=== PATIENT | male | born 1930 | race Caucasian/White ===

== ENCOUNTER 2016-12-20 19:15 | Inpatient (IN) | payer OTHER, MEDICARE ==
--- NOTE | 2016-12-20 19:27 | PDOC ---
History of Present Illness - General History Source: Patient, Parent(s) <Geovanni Narvaez - Last Filed: 12/20/16 19:26> - History of Present Illness Initial Comments: 12/20/16 19:28 The patient is an 86 year old male with history of hypertension, hyperlipidemia , diabetes, skin CA, bladder CA, brought in by EMS for a brief episode of altered mental status today. Per the patient's daughter at bedside, the patient was seated at the dinner table around 5 PM when he appeared to lean to the right , drooling, and not responsive. She subsequently activated EMS, but by the time they arrived on the scene the patient returned to his baseline. The daughter reports she checked the patient's blood sugar at 142. The patient is without complaint of physical evaluation. He denies headache, blurred vision, numbness or tingling. He denies any chest pain or shortness of breath. He denies nausea, vomiting, or diaphoresis. He denies fever or chills. He denies any recent changes or noncompliance with his medication. <Vero Vines - Last Filed: 12/20/16 19:41> - General Chief Complaint: CVA/TIA Stated Complaint: R/O STROKE Time Seen by Provider: 12/20/16 19:21 Past History - Past Medical History Cancer: Yes (skin, bladder) Diabetes: Yes HTN: Yes Hypercholesterolemia: Yes - Psycho/Social/Smoking Cessation Hx Anxiety: No Suicidal Ideation: No Smoking History: Former smoker Have you smoked in the past 12 months: No Number of Cigarettes Smoked Daily: 0 If you are a former smoker, when did you quit?: 50 years ago Information on smoking cessation initiated: No Hx Alcohol Use: No Drug/Substance Use Hx: No <Geovanni Narvaez - Last Filed: 12/20/16 19:26> <Vero Vines - Last Filed: 12/20/16 19:41> - Past Medical History Allergies/Adverse Reactions: Allergies Allergy/AdvReac Type Severity Reaction Status Date / Time No Known Allergies Allergy Verified 12/20/16 19:18 Review of Systems - Review of Systems Able to Perform ROS?: Yes Comments:: 12/20/16 19:31 GENERAL/CONSTITUTIONAL: No fever or chills. No weakness. HEAD, EYES, EARS, NOSE AND THROAT: No change in vision. No ear pain or discharge. No sore throat CARDIOVASCULAR: No chest pain or shortness of breath. RESPIRATORY: No cough, wheezing, or hemoptysis. GASTROINTESTINAL: No nausea, vomiting, diarrhea or constipation. GENITOURINARY: No dysuria, frequency, or change in urination. MUSCULOSKELETAL: No joint or muscle swelling or pain. No neck or back pain. SKIN: No rash NEUROLOGIC: +Right sided weakness (resolved), +AMS (nonresponsiveness, resolved) . No headache, vertigo, loss of consciousness, or change in strength/sensation. ENDOCRINE: No increased thirst. No abnormal weight change. HEMATOLOGIC/LYMPHATIC: No anemia, easy bleeding, or history of blood clots. ALLERGIC/IMMUNOLOGIC: No hives or skin allergy. <Vero Vines - Last Filed: 12/20/16 19:41> *Physical Exam - Vital Signs Last Vital Signs Temp Pulse Resp BP Pulse Ox 98.7 F 103 H 20 166/64 98 12/20/16 19:16 12/20/16 19:16 12/20/16 19:16 12/20/16 19:16 12/20/16 19:16 <Geovanni Narvaez - Last Filed: 12/20/16 19:26> - Vital Signs Last Vital Signs Temp Pulse Resp BP Pulse Ox 98.7 F 103 H 20 166/64 98 12/20/16 19:16 12/20/16 19:16 12/20/16 19:16 12/20/16 19:16 12/20/16 19:16 - Physical Exam Comments: 12/20/16 19:33 GENERAL: Awake, alert, and fully oriented, in no acute distress HEAD: No signs of trauma EYES: PERRLA, EOMI, sclera anicteric, conjunctiva clear ENT: Auricles normal inspection, hearing grossly normal, nares patent, oropharynx clear without exudates. Moist mucosa NECK: Normal ROM, supple, no lymphadenopathy, JVD, or masses LUNGS: Breath sounds equal, clear to auscultation bilaterally. No wheezes, and no crackles HEART: Regular rate and rhythm, normal S1 and S2, no murmurs, rubs or gallops ABDOMEN: Soft, nontender, normoactive bowel sounds. No guarding, no rebound. No masses EXTREMITIES: Normal range of motion, no edema. No clubbing or cyanosis. No cords, erythema, or tenderness NEUROLOGICAL: Cranial nerves II through XII grossly intact. Normal speech, normal gait. Sensation intact throughout. Moving all extremities. No nystagmus, no pronator drift. SKIN: Warm, Dry, normal turgor, no rashes or lesions noted. <Vero Vines - Last Filed: 12/20/16 19:41> Heart Score/ECG Review #1 12/20/16 19:38 EKG obtained 19:21. Sinus rhythm with 1st degree AV block. Vent rate 92 bpm. Nonspecific T wave abnormality. Abnormal ECG. <Vero Vines - Last Filed: 12/20/16 19:41> Discharge Disposition <Geovanni Narvaez - Last Filed: 12/20/16 19:26> <Vero Vines - Last Filed: 12/20/16 19:41> - Referrals Referrals: Glenn Hawk [Primary Care Provider] - Attestations - Attestations 12/20/16 19:36 Documentation prepared by Vero Vines, acting as associate medical director for Geovanni Narvaez DO. <Vero Vines - Last Filed: 12/20/16 19:41> Addendum entered and electronically signed by Geovanni Narvaez MD 12/20/16 20: 38: NIH Stroke Scale - Last Known Well Date/Time & Onset Date Last Known Well: 12/20/16 Time Last Known Well: 18:00 - Initial Evaluation Level of consciousness: Alert Ask patient the month and their age: Answers both correctly Ask patient to open & close eyes; make fist and let go: Obeys both correctly Best gaze (horizontal eye movement): Normal Visual field testing: No visual field loss Facial paresis (Show teeth/raise eyebrows/close eyes tight): Normal symmetrical movement Motor Function: Right Arm: Normal (extends arm 90 (or 45) degrees for 10 seconds without drift Motor Function: Left Leg: Normal (extends leg 30 degrees for 5 seconds without drift) Motor Function: Right Leg: Normal (extends leg 30 degrees for 5 seconds without drift) Limb Ataxia: No ataxia Sensory(Use pinprick test arms,legs,trunk,face/side to side): Normal Best language (Describe picture, name items, read sentences): No Aphasia Dysarthria (read several words): Normal articulation Extinction and Inattention: No abnormality Departure/Admission/Transfer - DischargeDeparture ED Status: Pending Admission Discharge Diagnosis: TIA (transient ischemic attack) Qualifiers: Transient cerebral ischemia type: unspecified Qualified Code(s): G45.9 - Transient cerebral ischemic attack, unspecified Patient Referred to:: Glenn Hawk [Primary Care Provider] - Progress Note (short form) - Note Progress Note: Dr. Narvaez: The scribe's documentation has been prepared under my direction and personally reviewed by me in its entirery. I confirm that the note above accurately reflects all work, treatment, procedures, and medical decision making performed by me. Pt found to have a TIA. No sign of infarct or bleed on CT scan of Brain. Pt will be admitted to [facility]. Addendum entered and electronically signed by Vero Vines SCRIBE 12/20/16 21 :49: ED Treatment Course - LABORATORY CBC & Chemistry Diagram: 12/20/16 19:30 12/20/16 19:30 - ADDITIONAL ORDERS Additional order review: Laboratory Results 12/20/16 12/20/16 12/20/16 19:30 19:30 19:30 INR 1.15 H Sodium 141 Potassium 4.1 Chloride 104 Carbon Dioxide 27 Anion Gap 10 BUN 25 H Creatinine 1.5 H D Creat Clearance w eGFR 44.59 Random Glucose 187 H D Calcium 8.7 Total Bilirubin 0.3 AST 21 ALT 30 D Alkaline Phosphatase 109 Creatine Kinase 148 Troponin I < 0.02 Total Protein 6.6 Albumin 3.6 Triglycerides 156 Cholesterol 128 Total LDL Cholesterol 80 HDL Cholesterol 46 Blood Type O POSITIVE Antibody Screen Negative 12/20/16 19:30 RBC 4.31 MCV 85.8 MCHC 34.2 RDW 14.0 MPV 7.5 Neutrophils % 80.0 Lymphocytes % 10.7 D Monocytes % 6.9 Eosinophils % 1.8 Basophils % 0.6 - RADIOLOGY Radiograph Interpretation: 12/20/16 21:[address], read and interpreted by Dr. Tucker, shows no evidence of acute intracranial pathology.
[2016-12-20] MEDS ORDERED: SODIUM CHLORIDE 1,000 ML IV SCH ×2 (19:30→21:45)
[2016-12-20 19:39] LABS: BASOPHIL 0.6 % (0-2.0); EOSINOPHIL 1.8 % (0-4.5); MCH 29.3 pg (25.7-33.7); MCHC 34.2 g/dl (32.0-35.9); MEAN CELL VOLUME 85.8 fl (80-96); MEAN PLT VOLUME 7.5 fl (7.5-11.1); PLATELET COUNT 195 K/MM3 (134-434); WHITE BLOOD COUNT 9.2 K/mm3 (4.0-10.0)
[2016-12-20 20:03] LABS: ALBUMIN 3.6 g/dl (3.4-5.0); ANION GAP 10 (8-16); BILIRUBIN,TOTAL 0.3 mg/dL (0.2-1.0); CALCIUM 8.7 mg/dL (8.5-10.1); CHOLESTEROL 128 mg/dL (50-200); CO2 27 mmol/L (21-32); CREATININE 1.5 mg/dL (0.7-1.3); GLUCOSE,RANDOM 187 mg/dL (74-106); INR 1.15 (0.82-1.09); LDL CHOLESTEROL (ONLY SJRH) 80 mg/dL (5-100); PROTHROMBIN TIME (PATIENT) 12.7 SEC (9.98-11.88); SGOT/AST 21 U/L (15-37); SGPT/ALT 30 U/L (12-78)
[2016-12-20 20:06] LABS: ALK PHOS 109 U/L (45-117); TOT PROT 6.6 g/dl (6.4-8.2); TROPONIN I < 0.02 ng/ml (0.00-0.05)
--- NOTE | 2016-12-20 21:43 | HP ---
Admitting History and Physical - Primary Care Physician PCP: Margot Bermudez - Admission History of Present Illness: The patient is an 86 year old male with history of hypertension, hyperlipidemia , diabetes, skin CA, bladder CA, brought in by EMS for a brief episode of altered mental status today. Per the patient's daughter at bedside, the patient was seated at the dinner table around 5 PM when he appeared to lean to the right , drooling, and not responsive. She subsequently activated EMS, but by the time they arrived on the scene the patient returned to his baseline. The daughter reports she checked the patient's blood sugar at 142. NO CP, FEVER, CHILLS, N AUSEA OR VOMITTING - Past Medical History Cardiovascular: Yes: HTN, Hyperlipdemia Endocrine: Yes: Diabetes Mellitus - Smoking History Smoking history: Former smoker Have you smoked in the past 12 months: No Aproximately how many cigarettes per day: 0 If you are a former smoker, when did you quit?: 50 years ago - Alcohol/Substance Use Hx Alcohol Use: No Home Medications - Allergies Allergies/Adverse Reactions: Allergies Allergy/AdvReac Type Severity Reaction Status Date / Time No Known Allergies Allergy Verified 12/20/16 19:18 - Home Medications Home Medications: Ambulatory Orders Amlodipine Besylate [Norvasc -] 10 mg PO DAILY 12/20/16 Atenolol [Tenormin -] 50 mg PO DAILY 12/20/16 Lisinopril [Zestril] 2.5 mg PO DAILY 12/20/16 Atorvastatin Ca 20 mg PO DAILY 12/21/16 Cholecalciferol (Vitamin D3) [Vitamin D3] 2,000 unit PO DAILY 12/21/16 Glimepiride 2 mg PO DAILY 12/21/16 Metformin HCl 1,000 mg PO DAILY 12/21/16 Naproxen Sodium [Aleve] 220 mg PO BID PRN MDD 440 mg 12/21/16 Physical Examination Vital Signs: Vital Signs Temperature 98.7 F 12/20/16 19:16 Pulse Rate 103 H 12/20/16 19:16 Respiratory Rate 20 12/20/16 19:16 Blood Pressure 166/64 12/20/16 19:16 O2 Sat by Pulse Oximetry (%) 98 12/20/16 19:16 Constitutional: Yes: No Distress HENT: Yes: Atraumatic Neck: Yes: Supple Cardiovascular: Yes: Regular Rate and Rhythm Respiratory: Yes: CTA Bilaterally Gastrointestinal: Yes: Normal Bowel Sounds Extremities: Yes: WNL Neurological: Yes: Alert, Oriented ...Motor Strength: WNL Problem List - Problems (1) TIA (transient ischemic attack) Code(s): G45.9 - TRANSIENT CEREBRAL ISCHEMIC ATTACK, UNSPECIFIED Qualifiers: Transient cerebral ischemia type: unspecified Qualified Code(s): G45.9 - Transient cerebral ischemic attack, unspecified (2) Hypoglycemia Code(s): E16.2 - HYPOGLYCEMIA, UNSPECIFIED (3) Hyperlipidemia associated with type 2 diabetes mellitus Code(s): E11.69 - TYPE 2 DIABETES MELLITUS WITH OTHER SPECIFIED COMPLICATION E78.5 - HYPERLIPIDEMIA, UNSPECIFIED (4) HTN (hypertension) Code(s): I10 - ESSENTIAL (PRIMARY) HYPERTENSION (5) Diabetes Code(s): E11.9 - TYPE 2 DIABETES MELLITUS WITHOUT COMPLICATIONS Assessment/Plan Laboratory Tests 12/20/16 12/20/16 12/20/16 19:30 19:30 19:30 WBC 9.2 RBC 4.31 Hgb 12.6 D Hct 37.0 MCV 85.8 MCHC 34.2 RDW 14.0 Plt Count 195 MPV 7.5 Neutrophils % 80.0 Lymphocytes % 10.7 D Monocytes % 6.9 Eosinophils % 1.8 Basophils % 0.6 INR 1.15 H Sodium 141 Potassium 4.1 Chloride 104 Carbon Dioxide 27 Anion Gap 10 BUN 25 H Creatinine 1.5 H D Creat Clearance w eGFR 44.59 Random Glucose 187 H D Calcium 8.7 Total Bilirubin 0.3 AST 21 ALT 30 D Alkaline Phosphatase 109 Creatine Kinase 148 Troponin I < 0.02 Total Protein 6.6 Albumin 3.6 Triglycerides 156 Cholesterol 128 Total LDL Cholesterol 80 HDL Cholesterol 46 Blood Type Antibody Screen 12/20/16 19:30 WBC RBC Hgb Hct MCV MCHC RDW Plt Count MPV Neutrophils % Lymphocytes % Monocytes % Eosinophils % Basophils % INR Sodium Potassium Chloride Carbon Dioxide Anion Gap BUN Creatinine Creat Clearance w eGFR Random Glucose Calcium Total Bilirubin AST ALT Alkaline Phosphatase Creatine Kinase Troponin I Total Protein Albumin Triglycerides Cholesterol Total LDL Cholesterol HDL Cholesterol Blood Type O POSITIVE Antibody Screen Negative Active Medications Generic Name Dose Route Start Last Admin Trade Name Freq PRN Reason Stop Dose Admin Sodium Chloride 1,000 mls @ 42 mls/hr 12/20/16 19:30 Normal Saline - IV ASDIR WENCESLAO 1.TIA? ADMIT HEAD CT NEURO CHECKS NEURO CONSULT 2.htn on meds stable 3.dm bgms meds 4.hld on meds cardiology evel might need holter to r/o arrythmia dvt pps
[2016-12-20] MEDS ORDERED: ACETAMINOPHEN 325 MG TABLET (FP) PO PRN (21:44)
[2016-12-21 02:00] LABS: URINE APPEARANCE CLEAR; URINE BILIRUBIN NEGATIVE (NEGATIVE); URINE BLOOD NEGATIVE (NEGATIVE); URINE COLOR LTYELLOW; URINE GLUCOSE (UA) NEGATIVE (NEGATIVE); URINE KETONE NEGATIVE (NEGATIVE); URINE LEUK ESTERASE NEGATIVE (NEGATIVE); URINE NITRITE NEGATIVE (NEGATIVE); URINE PROTEIN NEGATIVE (NEGATIVE); URINE UROBILINOGEN NEGATIVE E.U./dl (0.2-1.0)
[2016-12-21 03:32] VITALS: BMI 29.7
[2016-12-21 07:42] LABS: BASOPHIL 0.5 % (0-2.0); EOSINOPHIL 2.5 % (0-4.5); MCH 29.7 pg (25.7-33.7); MCHC 35.2 g/dl (32.0-35.9); MEAN CELL VOLUME 84.5 fl (80-96); MEAN PLT VOLUME 7.5 fl (7.5-11.1); NEUTROPHILS 70.5 % (42.8-82.8); PLATELET COUNT 164 K/MM3 (134-434); RDW 13.9 % (11.9-15.9); WHITE BLOOD COUNT 8.1 K/mm3 (4.0-10.0)
[2016-12-21 08:03] LABS: ALBUMIN 3.1 g/dl (3.4-5.0); BILIRUBIN,TOTAL 0.5 mg/dL (0.2-1.0); CREATININE 1.2 mg/dL (0.7-1.3); TOT PROT 5.9 g/dl (6.4-8.2)
[2016-12-21] MEDS: amLODIPine BESYLATE 10 MG TABLET (FP) PO SCH (09:14)
[2016-12-21] MEDS: ATENOLOL 50 MG TABLET (FP) PO SCH (09:14)
[2016-12-21] MEDS: ATORVASTATIN CA 20 MG TABLET (FP) PO SCH (21:00)
[2016-12-22] MEDS: ATENOLOL 50 MG TABLET (FP) PO SCH (09:54)
[2016-12-22] MEDS: amLODIPine BESYLATE 10 MG TABLET (FP) PO SCH (09:54)
[2016-12-22] MEDS: BACITRACIN 30 GM TUBE TOPICAL OINTMENT TP SCH (12:09)
--- NOTE | 2016-12-22 12:46 | CON.CARD ---
Consult Consult Specialty:: Cardiology Referred by:: Margot Bermudez MD Reason for Consultation:: R/o TIA - History of Present Illness Chief Complaint: Altered mental status History of Present Illness: The patient is an 86 year old male with history of hypertension, hyperlipidemia , diabetes, skin CA, bladder CA, brought in by EMS for a brief episode of altered mental status since resolved. He was noted by daughter to lean to the right, drooling, and not responsive, FS 142. She subsequently activated EMS, but by the time they arrived on the scene the patient returned to his baseline. He denies chest pain, dyspnea, near or true syncope, palpitations, orthopnea, PND or LE edema. - History Source History Provided By: Patient Limitations to Obtaining History: No Limitations - Past Medical History Cardio/Vascular: Yes: HTN, Hyperlipdemia Endocrine: Yes: Diabetes Mellitus - Alcohol/Substance Use Hx Alcohol Use: No - Smoking History Smoking history: Former smoker Have you smoked in the past 12 months: No Aproximately how many cigarettes per day: 0 If you are a former smoker, when did you quit?: 1969 Home Medications - Allergies Allergies/Adverse Reactions: Allergies Allergy/AdvReac Type Severity Reaction Status Date / Time No Known Allergies Allergy Verified 12/20/16 19:18 - Home Medications Home Medications: Ambulatory Orders Amlodipine Besylate [Norvasc -] 10 mg PO DAILY 12/20/16 Atenolol [Tenormin -] 50 mg PO DAILY 12/20/16 Lisinopril [Zestril] 2.5 mg PO DAILY 12/20/16 Atorvastatin Ca 20 mg PO DAILY 12/21/16 Cholecalciferol (Vitamin D3) [Vitamin D3] 2,000 unit PO DAILY 12/21/16 Glimepiride 2 mg PO DAILY 12/21/16 Metformin HCl 1,000 mg PO DAILY 12/21/16 Naproxen Sodium [Aleve] 220 mg PO BID PRN MDD 440 mg 12/21/16 Review of Systems - Review of Systems Neurological: reports: Confusion Vital Signs: Vital Signs Temperature 98.1 F 12/22/16 09:00 Pulse Rate 65 12/22/16 09:00 Respiratory Rate 19 12/22/16 09:00 Blood Pressure 125/62 12/22/16 09:00 O2 Sat by Pulse Oximetry (%) 98 12/22/16 09:00 Constitutional: Yes: No Distress, Calm Neck: Yes: Supple Respiratory: Yes: Regular, CTA Bilaterally Gastrointestinal: Yes: Normal Bowel Sounds, Soft Cardiovascular: Yes: Regular Rate and Rhythm JVD: No Carotid Bruit: No Heart Sounds: Yes: S1, S2 Edema: No - Other Data Labs, Other Data: CBC, BMP 12/21/16 06:50 12/21/16 06:50 INR, PTT INR 1.15 (0.82-1.09) H 12/20/16 19:30 NSR @ 92 1st deg AVB Imaging - Results Chest X-ray: Report Reviewed (NAD) Cat Scan: Report Reviewed (HCT: No acute changes) Problem List - Problems (1) TIA (transient ischemic attack) Code(s): G45.9 - TRANSIENT CEREBRAL ISCHEMIC ATTACK, UNSPECIFIED Qualifiers: Transient cerebral ischemia type: unspecified Qualified Code(s): G45.9 - Transient cerebral ischemic attack, unspecified (2) Hypertensive cardiomyopathy Code(s): I11.9 - HYPERTENSIVE HEART DISEASE WITHOUT HEART FAILURE I42.9 - CARDIOMYOPATHY, UNSPECIFIED Qualifiers: Heart failure presence: without heart failure Qualified Code(s): I11.9 - Hypertensive heart disease without heart failure (3) Hyperlipidemia associated with type 2 diabetes mellitus Code(s): E11.69 - TYPE 2 DIABETES MELLITUS WITH OTHER SPECIFIED COMPLICATION E78.5 - HYPERLIPIDEMIA, UNSPECIFIED (4) Anemia Code(s): D64.9 - ANEMIA, UNSPECIFIED Assessment/Plan 1. Transient altered mental status r/o TIA 2. HTN/HCVD 3. Hyperlipidemia 4. Type 2 DM 5. Anemia P:1. Echo to assess LV and valve fxn, tele monitor r/o PAF 2. Continue Norvasc 10 qd, Atenolol 50 qd, Lipitor 20 qd, add ASA 81 qd and resume lisinopril 2.5 qd, 3. Carotid u/s, brain MRI 4. Longer term event recorder to r/o PAF as outpatient 5. Thank you for consultative opportunity
--- NOTE | 2016-12-22 13:28 | EKG ---
Test Reason : Blood Pressure : / mmHG Vent. Rate : 092 BPM Atrial Rate : 092 BPM P-R Int : 298 ms QRS Dur : 084 ms QT Int : 340 ms P-R-T Axes : 043 -26 064 degrees QTc Int : 420 ms SINUS RHYTHM WITH 1ST DEGREE A-V BLOCK NONSPECIFIC T WAVE ABNORMALITY ABNORMAL ECG WHEN COMPARED WITH ECG OF 01-DEC-2013 22:06, NONSPECIFIC T WAVE ABNORMALITY NOW EVIDENT IN ANTERIOR LEADS Confirmed by SAMM TROY MD ([id number]) on 12/22/2016 1:28:03 PM Referred By: Confirmed By:SAMM TROY MD
[2016-12-22] MEDS: LISINOPRIL 5 MG TABLET (FP) PO SCH (14:37)
[2016-12-22] MEDS: ASPIRIN 81 MG CHEWABLE TABLETS PO SCH (14:37)
--- NOTE | 2016-12-22 15:48 | PN ---
Progress Note, Physician - Current Medication List Current Medications: Active Medications Acetaminophen (Tylenol -) 650 mg PO Q6H PRN PRN Reason: FEVER OR PAIN Amlodipine Besylate (Norvasc -) 10 mg PO DAILY [facility] Last Admin: 12/22/16 09:54 Dose: 10 mg Aspirin (Asa -) 81 mg PO DAILY [facility] Last Admin: 12/22/16 14:37 Dose: 81 mg Atorvastatin Calcium (Lipitor -) 20 mg PO HS [facility] Last Admin: 12/21/16 21:00 Dose: 20 mg Bacitracin (Bacitracin -) 1 applic TP DAILY [facility] Last Admin: 12/22/16 12:09 Dose: 1 applic Lisinopril (Prinivil) 2.5 mg PO DAILY [facility] Last Admin: 12/22/16 14:37 Dose: 2.5 mg Metformin HCl (Glucophage -) 500 mg PO BID@0700,1630 [facility] - Objective Vital Signs: Vital Signs Temperature 98.5 F 12/22/16 14:35 Pulse Rate 73 12/22/16 14:35 Respiratory Rate 14 12/22/16 14:35 Blood Pressure 134/75 12/22/16 14:35 O2 Sat by Pulse Oximetry (%) 98 12/22/16 09:00 Constitutional: Yes: No Distress HENT: Yes: Normocephalic Cardiovascular: Yes: Regular Rate and Rhythm Respiratory: Yes: CTA Bilaterally Gastrointestinal: Yes: Normal Bowel Sounds Neurological: Yes: Alert, Oriented Labs: CBC, BMP 12/21/16 06:50 12/21/16 06:50 INR, PTT INR 1.15 (0.82-1.09) H 12/20/16 19:30 Problem List - Problems (1) TIA (transient ischemic attack) Code(s): G45.9 - TRANSIENT CEREBRAL ISCHEMIC ATTACK, UNSPECIFIED Qualifiers: Transient cerebral ischemia type: unspecified Qualified Code(s): G45.9 - Transient cerebral ischemic attack, unspecified (2) Hypoglycemia Code(s): E16.2 - HYPOGLYCEMIA, UNSPECIFIED Assessment/Plan 1.TIA? resolved pt stable seen cardio note awaiting neuro to see pt pt eval done 2.htn on meds stable 3.dm on meds bgms 12/21..bad storm couldnt come but on phone with nurses manageing pt
--- NOTE | 2016-12-22 16:58 | CON.NEURO ---
Consult Consult Specialty:: NEUROLOGY Reason for Consultation:: syncope and collapse - History of Present Illness History of Present Illness: 86 year old male with history of hypertension, hyperlipidemia, diabetes, skin CA , bladder CA, was brought in by EMS for a brief episode of altered mental status today. Per the patient's daughter at bedside, the patient was seated at the dinner table around 5 PM when he appeared to lean to the right, drooling, and not responsive. By the time EMS arrived, like 10min. the patient returned to his baseline. The daughter reports she checked the patient's blood sugar at 142. NO CP, FEVER, CHILLS, NAUSEA OR VOMITTING The patient denies diplopia, vertigo, nausea, vomiting. The CT head is negative for acute pathology. - History Source History Provided By: Patient, Medical Record - Past Medical History Cardio/Vascular: Yes: HTN, Hyperlipdemia Endocrine: Yes: Diabetes Mellitus - Alcohol/Substance Use Hx Alcohol Use: No - Smoking History Smoking history: Former smoker Have you smoked in the past 12 months: No Aproximately how many cigarettes per day: 0 If you are a former smoker, when did you quit?: 50 years ago Home Medications - Allergies Allergies/Adverse Reactions: Allergies Allergy/AdvReac Type Severity Reaction Status Date / Time No Known Allergies Allergy Verified 12/20/16 19:18 - Home Medications Home Medications: Ambulatory Orders Amlodipine Besylate [Norvasc -] 10 mg PO DAILY 12/20/16 Atenolol [Tenormin -] 50 mg PO DAILY 12/20/16 Lisinopril [Zestril] 2.5 mg PO DAILY 12/20/16 Atorvastatin Ca 20 mg PO DAILY 12/21/16 Cholecalciferol (Vitamin D3) [Vitamin D3] 2,000 unit PO DAILY 12/21/16 Glimepiride 2 mg PO DAILY 12/21/16 Metformin HCl 1,000 mg PO DAILY 12/21/16 Naproxen Sodium [Aleve] 220 mg PO BID PRN MDD 440 mg 12/21/16 Review of Systems - Review of Systems Constitutional: reports: No Symptoms Eyes: reports: No Symptoms HENT: reports: No Symptoms Neck: reports: No Symptoms Cardiovascular: reports: No Symptoms Respiratory: reports: No Symptoms Gastrointestinal: reports: No Symptoms Genitourinary: reports: No Symptoms Breasts: reports: No Symptoms Reported Musculoskeletal: reports: No Symptoms Integumentary: reports: No Symptoms Neurological: reports: No Symptoms Endocrine: reports: No Symptoms Hematology/Lymphatic: reports: No Symptoms Psychiatric: reports: No Symptoms Physical Exam-Neuro Vital Signs: Vital Signs Temperature 98.5 F 12/22/16 14:35 Pulse Rate 73 12/22/16 14:35 Respiratory Rate 14 12/22/16 14:35 Blood Pressure 134/75 12/22/16 14:35 O2 Sat by Pulse Oximetry (%) 98 12/22/16 09:00 Constitutional: Yes: No Distress, Calm Neck: Yes: Supple, Trachea Midline Cardiovascular: Yes: Regular Rate and Rhythm, S1, S2 Respiratory: Yes: Regular, CTA Bilaterally Gastrointestinal: Yes: Normal Bowel Sounds, Soft Renal/: Yes: WNL Musculoskeletal: Yes: WNL Edema: No Psychiatric: Yes: Alert, Oriented Labs: CBC, BMP 12/21/16 06:50 12/21/16 06:50 INR, PTT INR 1.15 (0.82-1.09) H 12/20/16 19:30 - Neuro Exam Level Of Consciousness: Yes: Oriented to Person, Oriented to Place, Oriented to Time Eyes: Yes: PERRLA Speech: WNL Dominant Hand: Right Cranial Nerves II-XII Intact: Yes Gag: Present DTR's: 1+ Left Bicep, 1+ Right Bicep, 1+ Left Tricep, 1+ Right Tricep, 1+ Left Brachioradialis, 1+ Right Brachioradialis, 1+ Left Achilles, 1+ Right Achilles Babinski: Absent Response to light touch: Normal Response to pain prick: Normal Response to temperature: Normal Response to vibration: Normal Coordination: Normal: Finger to Nose, Heel to [place] Motor Strength: 5/5: Left Arm, Right Arm, Left Leg, Right Leg Gait: Normal NIH Stroke Scale - Total Score NIH Stroke Scale Score: 0 Imaging - Results Cat Scan: Report Reviewed, Image Reviewed Other: Report Reviewed, Image Reviewed Problem List - Problems (1) Syncope and collapse Code(s): R55 - SYNCOPE AND COLLAPSE (2) HTN (hypertension) Code(s): I10 - ESSENTIAL (PRIMARY) HYPERTENSION (3) TIA (transient ischemic attack) Code(s): G45.9 - TRANSIENT CEREBRAL ISCHEMIC ATTACK, UNSPECIFIED Qualifiers: Transient cerebral ischemia type: unspecified Qualified Code(s): G45.9 - Transient cerebral ischemic attack, unspecified (4) Hypoglycemia Code(s): E16.2 - HYPOGLYCEMIA, UNSPECIFIED Assessment/Plan 86 year old male with history of hypertension, hyperlipidemia, diabetes, skin CA , bladder CA, was brought in by EMS for a brief episode of altered mental status today. Per the patient's daughter at bedside, the patient was seated at the dinner table around 5 PM when he appeared to lean to the right, drooling, and not responsive. By the time EMS arrived, like 10min. the patient returned to his baseline. The daughter reports she checked the patient's blood sugar at 142. The patient denies diplopia, vertigo, nausea, vomiting. The CT head is negative for acute pathology. Impression: syncope and collapse.orthostatic hypotension, cardiac syncope versus vago vagal syncope. Plan: - nonfocal neurological exam , NIHS is 0 - continue asa 81mg. po daily, statin, blood pressure control <130mmHg., CHERELLE , metformin- control DM. - syncope work up: echocardiogram, doppler carotids, holter 24h, - possible bradycardia- the patient states that last night his heart rate dropped into the 30s. on the monitor holter and his pin attacher was considering holding the betablockers. - check orthostatic hypotension, lipids, HbA1C -DVT prophylaxis. Thank you for this kind referral.
[2016-12-22] MEDS: ATORVASTATIN CA 20 MG TABLET (FP) PO SCH (21:19)
[2016-12-23] MEDS: ASPIRIN 81 MG CHEWABLE TABLETS PO SCH (09:19)
[2016-12-23] MEDS: LISINOPRIL 5 MG TABLET (FP) PO SCH (09:20)
[2016-12-23] MEDS: amLODIPine BESYLATE 10 MG TABLET (FP) PO SCH (09:20)
[2016-12-23] MEDS: BACITRACIN 30 GM TUBE TOPICAL OINTMENT TP SCH (09:20)
--- NOTE | 2016-12-23 10:44 | PN ---
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 Atenolol d/nicole. Carotid U/s showed sig right ICA stenosis. - Current Medication List Current Medications: Active Medications Acetaminophen (Tylenol -) 650 mg PO Q6H PRN PRN Reason: FEVER OR PAIN Amlodipine Besylate (Norvasc -) 10 mg PO DAILY [facility] Last Admin: 12/23/16 09:20 Dose: 10 mg Aspirin (Asa -) 81 mg PO DAILY [facility] Last Admin: 12/23/16 09:19 Dose: 81 mg Atorvastatin Calcium (Lipitor -) 20 mg PO HS [facility] Last Admin: 12/22/16 21:19 Dose: 20 mg Bacitracin (Bacitracin -) 1 applic TP DAILY [facility] Last Admin: 12/23/16 09:20 Dose: 1 applic Lisinopril (Prinivil) 2.5 mg PO DAILY [facility] Last Admin: 12/23/16 09:20 Dose: 2.5 mg Metformin HCl (Glucophage -) 500 mg PO BID@0700,1630 [facility] - Objective Vital Signs: Vital Signs Temperature 98.3 F 12/23/16 09:24 Pulse Rate 69 12/23/16 09:24 Respiratory Rate 18 12/23/16 09:24 Blood Pressure 127/60 12/23/16 09:24 O2 Sat by Pulse Oximetry (%) 95 12/22/16 21:00 Constitutional: Yes: No Distress, Calm Neck: Yes: Supple Cardiovascular: Yes: Regular Rate and Rhythm Respiratory: Yes: Regular, CTA Bilaterally Gastrointestinal: Yes: Normal Bowel Sounds, Soft Edema: No Labs: CBC, BMP 12/21/16 06:50 12/21/16 06:50 INR, PTT INR 1.15 (0.82-1.09) H 12/20/16 19:30 Problem List - Problems (1) TIA (transient ischemic attack) Code(s): G45.9 - TRANSIENT CEREBRAL ISCHEMIC ATTACK, UNSPECIFIED Qualifiers: Transient cerebral ischemia type: unspecified Qualified Code(s): G45.9 - Transient cerebral ischemic attack, unspecified (2) Hypertensive cardiomyopathy Code(s): I11.9 - HYPERTENSIVE HEART DISEASE WITHOUT HEART FAILURE I42.9 - CARDIOMYOPATHY, UNSPECIFIED Qualifiers: Heart failure presence: without heart failure Qualified Code(s): I11.9 - Hypertensive heart disease without heart failure (3) Hyperlipidemia associated with type 2 diabetes mellitus Code(s): E11.69 - TYPE 2 DIABETES MELLITUS WITH OTHER SPECIFIED COMPLICATION E78.5 - HYPERLIPIDEMIA, UNSPECIFIED (4) Anemia Code(s): D64.9 - ANEMIA, UNSPECIFIED (5) Syncope and collapse Code(s): R55 - SYNCOPE AND COLLAPSE Assessment/Plan 12/22/2016 Echo: Normal LV size and fxn, mild TR, tr-mild MR 12/22/2016 Holter: SR, Type 1 2nd deg AVB Wenckbach overnight 1. Transient altered mental status r/o TIA vs syncope 2. AV block (nocturnal) consider OSAS 3. HTN/HCVD 4. Hyperlipidemia 5. Type 2 DM 6. Anemia 7. Right ICA stenosis P:1. F/u neck CTA to confirm degree of carotid stenosis, brain MRI 2. Continue Norvasc 10 qd, Lipitor 20 qd, ASA 81 qd and lisinopril 2.5 qd. Atenolol d/nicole due to bradycardia 3. Outpatient PSG r/o OSAS
--- NOTE | 2016-12-23 15:22 | HOL ---
Hook-up date: 2016-12-22 15:00:00 Duration: 23:27:00 Test Indications: 2ND DEGREE AVB Medications: 13446 QRS complexes 3 Ventricular ectopics which represent <1 % of total QRS comp. 5 Supraventricular ectopics which represent <1 % of total QRS comp. * Paced QRS complexs which represent % of total QRS comp. * % of Time Classified as Noise VENTRICULAR ECTOPY 3 Isolated 0 Bigeminal Cycles 0 Couplets 0 Runs 0 Beats in Runs * Beats LONGEST at * BPM at :: -- * Beats FASTEST at * BPM at :: -- SUPRAVENTRICULAR ECTOPY 3 Isolated 1 Couplets 0 Runs 0 Beats in Runs * Beats LONGEST at * BPM at :: -- * Beats FASTEST at * BPM at :: -- HEART RATES 34 MIN at 02:53:40 2016-12-23 64 AVG 99 MAX at 08:36:03 2016-12-23 LONGEST RR 2.352 secs at 03:07:42 2016-12-23 SCANNED BY KAYLEN MEADWOS 12/23/2016 NO DIARY SUBMITTED 1. Baseline rhythm is sr with first degree avb. Avg hr 64 and range 34 to 99. 2. Frequent episodes of second degree avb, mobitz type I (wenckebach) in a 2 to 1 pattern creating pauses up to 2.35 seconds. These episodes occur during sleeping hours. 3. Rare pacs and pvcs. 4. No VT, VF, afib, aflutter, svt detected. 5. No diary submitted. Confirmed by OTILIA TURNER MD ([id number]) on 12/23/2016 3:21:44 PM Referred By: Overread By: OTILIA TURNER MD
--- NOTE | 2016-12-23 15:22 | EKG ---
Test Reason : Blood Pressure : / mmHG Vent. Rate : 065 BPM Atrial Rate : 065 BPM P-R Int : 296 ms QRS Dur : 086 ms QT Int : 402 ms P-R-T Axes : 068 -10 039 degrees QTc Int : 418 ms SINUS RHYTHM WITH 1ST DEGREE A-V BLOCK OTHERWISE NORMAL ECG WHEN COMPARED WITH ECG OF 20-DEC-2016 19:21, NONSPECIFIC T WAVE ABNORMALITY NO LONGER EVIDENT IN ANTERIOR LEADS Confirmed by JOHNNY PENN, OTILIA ([id number]) on 12/23/2016 3:22:14 PM Referred By: Confirmed By:OTILIA TURNER MD
--- NOTE | 2016-12-23 15:27 | PN ---
Progress Note, Physician History of Present Illness: 86 year old male with history of hypertension, hyperlipidemia, diabetes, skin CA , bladder CA, was brought in by EMS for a brief episode of altered mental status today. Per the patient's daughter at bedside, the patient was seated at the dinner table around 5 PM when he appeared to lean to the right, drooling, and not responsive. By the time EMS arrived, like 10min. the patient returned to his baseline. The daughter reports she checked the patient's blood sugar at 142. NO CP, FEVER, CHILLS, NAUSEA OR VOMITTING The patient denies diplopia, vertigo, nausea, vomiting. The CT head is negative for acute pathology. - Current Medication List Current Medications: Active Medications Acetaminophen (Tylenol -) 650 mg PO Q6H PRN PRN Reason: FEVER OR PAIN Amlodipine Besylate (Norvasc -) 10 mg PO DAILY [facility] Last Admin: 12/23/16 09:20 Dose: 10 mg Aspirin (Asa -) 81 mg PO DAILY [facility] Last Admin: 12/23/16 09:19 Dose: 81 mg Atorvastatin Calcium (Lipitor -) 20 mg PO HS [facility] Last Admin: 12/22/16 21:19 Dose: 20 mg Bacitracin (Bacitracin -) 1 applic TP DAILY [facility] Last Admin: 12/23/16 09:20 Dose: 1 applic Lisinopril (Prinivil) 2.5 mg PO DAILY [facility] Last Admin: 12/23/16 09:20 Dose: 2.5 mg Metformin HCl (Glucophage -) 500 mg PO BID@0700,1630 [facility] - Objective Vital Signs: Vital Signs Temperature 98.3 F 12/23/16 14:39 Pulse Rate 70 12/23/16 14:39 Respiratory Rate 16 12/23/16 14:39 Blood Pressure 115/55 12/23/16 14:39 O2 Sat by Pulse Oximetry (%) 99 12/23/16 09:00 Constitutional: Yes: No Distress, Calm Eyes: Yes: Conjunctiva Clear, EOM Intact HENT: Yes: Atraumatic, Normocephalic Neck: Yes: Supple, Trachea Midline Cardiovascular: Yes: Regular Rate and Rhythm, S1, S2 Respiratory: Yes: Regular, CTA Bilaterally Gastrointestinal: Yes: Normal Bowel Sounds, Soft Genitourinary: Yes: WNL Breast(s): Yes: WNL Musculoskeletal: Yes: WNL Extremities: Yes: WNL Peripheral Pulses WNL: Yes Peripheral Pulses: Left Radial: 1+, Right Radial: 1+ Neurological: Yes: WNL, Alert, Oriented, Cran Nerves II-XII Intact ...Motor Strength: WNL Psychiatric: Yes: WNL, Alert, Oriented Labs: CBC, BMP 12/21/16 06:50 12/21/16 06:50 INR, PTT INR 1.15 (0.82-1.09) H 12/20/16 19:30 - ....Imaging Ultrasound: Report Reviewed, Image Reviewed MRI: Pending Other: Report Reviewed, Image Reviewed Problem List - Problems (1) Syncope and collapse Code(s): R55 - SYNCOPE AND COLLAPSE (2) HTN (hypertension) Code(s): I10 - ESSENTIAL (PRIMARY) HYPERTENSION (3) TIA (transient ischemic attack) Code(s): G45.9 - TRANSIENT CEREBRAL ISCHEMIC ATTACK, UNSPECIFIED Qualifiers: Transient cerebral ischemia type: unspecified Qualified Code(s): G45.9 - Transient cerebral ischemic attack, unspecified (4) Hypoglycemia Code(s): E16.2 - HYPOGLYCEMIA, UNSPECIFIED Assessment/Plan 86 year old male with history of hypertension, hyperlipidemia, diabetes, skin CA , bladder CA, was brought in by EMS for a brief episode of altered mental status today. Per the patient's daughter at bedside, the patient was seated at the dinner table around 5 PM when he appeared to lean to the right, drooling, and not responsive. By the time EMS arrived, like 10min. the patient returned to his baseline. The daughter reports she checked the patient's blood sugar at 142. The patient denies diplopia, vertigo, nausea, vomiting. The CT head is negative for acute pathology. Impression: syncope and collapse.orthostatic hypotension, cardiac syncope versus vago vagal syncope. TIA doppler carotids : high grade stenosis right common and right internal carotid. transient nocturnal bradycardia with AVB on holter 48h. Plan: - nonfocal neurological exam , NIHS is 0 - continue asa 81mg. po daily, statin, blood pressure control <130mmHg., CHERELLE , metformin- control DM. - syncope work up was done : echocardiogram, doppler carotids, holter 24h, - CTA w/wo contrast head and neck to further evaluate carotid stenosis. - MRI brain to rule out stroke. Consider vascular consult after CTA neck. - to have sleep study to rule out BJ or CSA. -DVT prophylaxis. Thank you for this kind referral.
[2016-12-23] MEDS: metFORMIN HCL 500 MG TABLET (FP) PO SCH (16:37)
[2016-12-23] MEDS ORDERED: HEPARIN NA (PORCINE) 5,000 UNITS/ML 1ML VIAL IVPUSH PRN (17:04)
--- NOTE | 2016-12-23 17:19 | PN ---
Progress Note (short form) - Note Progress Note: Progress Note: Radiology called and there is acute/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 The patient is stable, NIHS is 0. Called the cardiology and the PMD . To start heparin drip per dissection protocol after MRI brain done . To call endovascular consult stat. will follow. Problem List - Problems (1) Syncope and collapse Code(s): R55 - SYNCOPE AND COLLAPSE (2) HTN (hypertension) Code(s): I10 - ESSENTIAL (PRIMARY) HYPERTENSION (3) TIA (transient ischemic attack) Code(s): G45.9 - TRANSIENT CEREBRAL ISCHEMIC ATTACK, UNSPECIFIED Qualifiers: Transient cerebral ischemia type: unspecified Qualified Code(s): G45.9 - Transient cerebral ischemic attack, unspecified (4) Hypoglycemia Code(s): E16.2 - HYPOGLYCEMIA, UNSPECIFIED
--- NOTE | 2016-12-23 17:34 | PN ---
Progress Note, Physician History of Present Illness: STABLE - Current Medication List Current Medications: Active Medications Acetaminophen (Tylenol -) 650 mg PO Q6H PRN PRN Reason: FEVER OR PAIN Amlodipine Besylate (Norvasc -) 10 mg PO DAILY [facility] Last Admin: 12/23/16 09:20 Dose: 10 mg Aspirin (Asa -) 81 mg PO DAILY [facility] Last Admin: 12/23/16 09:19 Dose: 81 mg Atorvastatin Calcium (Lipitor -) 20 mg PO HS [facility] Last Admin: 12/22/16 21:19 Dose: 20 mg Bacitracin (Bacitracin -) 1 applic TP DAILY [facility] Last Admin: 12/23/16 09:20 Dose: 1 applic Heparin Sodium (Porcine) (Heparin -) 1,000 unit IVPUSH PRN PRN PRN Reason: Heparin Heparin Sodium (Porcine) (Heparin -) 5,000 unit IVPUSH PRN PRN PRN Reason: Heparin Heparin Sodium/Dextrose (Heparin Infusion -) 500 mls @ 16 mls/hr IVPB TITR [facility] ; 800 UNITS/HR PRN Reason: Protocol Lisinopril (Prinivil) 2.5 mg PO DAILY [facility] Last Admin: 12/23/16 09:20 Dose: 2.5 mg Metformin HCl (Glucophage -) 500 mg PO BID@0700,1630 [facility] Last Admin: 12/23/16 16:37 Dose: Not Given - Objective Vital Signs: Vital Signs Temperature 98.3 F 12/23/16 14:39 Pulse Rate 70 12/23/16 14:39 Respiratory Rate 16 12/23/16 14:39 Blood Pressure 115/55 12/23/16 14:39 O2 Sat by Pulse Oximetry (%) 99 12/23/16 09:00 Constitutional: Yes: No Distress HENT: Yes: Atraumatic Neck: Yes: Supple Cardiovascular: Yes: Regular Rate and Rhythm Respiratory: Yes: CTA Bilaterally Gastrointestinal: Yes: Normal Bowel Sounds Extremities: Yes: WNL Neurological: Yes: Alert, Oriented Labs: CBC, BMP 12/21/16 06:50 12/21/16 06:50 INR, PTT INR 1.15 (0.82-1.09) H 12/20/16 19:30 Problem List - Problems (1) TIA (transient ischemic attack) Code(s): G45.9 - TRANSIENT CEREBRAL ISCHEMIC ATTACK, UNSPECIFIED Qualifiers: Transient cerebral ischemia type: unspecified Qualified Code(s): G45.9 - Transient cerebral ischemic attack, unspecified (2) Hypoglycemia Code(s): E16.2 - HYPOGLYCEMIA, UNSPECIFIED (3) Hyperlipidemia associated with type 2 diabetes mellitus Code(s): E11.69 - TYPE 2 DIABETES MELLITUS WITH OTHER SPECIFIED COMPLICATION E78.5 - HYPERLIPIDEMIA, UNSPECIFIED (4) HTN (hypertension) Code(s): I10 - ESSENTIAL (PRIMARY) HYPERTENSION (5) Diabetes Code(s): E11.9 - TYPE 2 DIABETES MELLITUS WITHOUT COMPLICATIONS Assessment/Plan A/P 1.TIA STBLE ALL PREVIOUS NOTED MRA.. acute/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 D/W NEURO SHE HAD STARTED HEPARIN DRIP PER PROTOCOL VASCULAR SURGERY CONSULTED D/W DR JOHNSON CARDIO 2.htn on meds stable 3.dm bgms meds 4.hld on meds dvt pps
[2016-12-23 19:35] LABS: BASOPHIL 0.6 % (0-2.0); EOSINOPHIL 2.3 % (0-4.5); MCH 29.1 pg (25.7-33.7); MEAN CELL VOLUME 85.6 fl (80-96); MEAN PLT VOLUME 7.7 fl (7.5-11.1); NEUTROPHILS 72.1 % (42.8-82.8); PLATELET COUNT 220 K/MM3 (134-434); WHITE BLOOD COUNT 8.1 K/mm3 (4.0-10.0)
[2016-12-23 19:58] LABS: ALBUMIN 3.5 g/dl (3.4-5.0); BILIRUBIN,TOTAL 0.4 mg/dL (0.2-1.0); CALCIUM 8.3 mg/dL (8.5-10.1); CREATININE 1.4 mg/dL (0.7-1.3); TOT PROT 6.5 g/dl (6.4-8.2)
[2016-12-23] MEDS: ATORVASTATIN CA 20 MG TABLET (FP) PO SCH (21:20)
[2016-12-23] MEDS: HEPARIN INFUSION - 500 ML IVPB SCH (21:38)
[2016-12-24] MEDS: HEPARIN INFUSION - 500 ML IVPB SCH ×2 (04:42→17:17)
[2016-12-24] MEDS: HEPARIN NA (PORCINE) 5,000 UNITS/ML 1ML VIAL IVPUSH PRN ×2 (04:42→11:33)
[2016-12-24] MEDS: LISINOPRIL 5 MG TABLET (FP) PO SCH (09:28)
[2016-12-24] MEDS: amLODIPine BESYLATE 10 MG TABLET (FP) PO SCH (09:28)
[2016-12-24] MEDS: ASPIRIN 81 MG CHEWABLE TABLETS PO SCH (09:29)
--- NOTE | 2016-12-24 10:38 | PN ---
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 Atenolol d/nicole. Carotid U/s showed sig right ICA stenosis, CTA shows ILEANA occlusion with tapered appearance suspect dissection, brain MRI without stroke, heparin gtt started. - Current Medication List Current Medications: Active Medications Acetaminophen (Tylenol -) 650 mg PO Q6H PRN PRN Reason: FEVER OR PAIN Amlodipine Besylate (Norvasc -) 10 mg PO DAILY [facility] Last Admin: 12/24/16 09:28 Dose: 10 mg Aspirin (Asa -) 81 mg PO DAILY [facility] Last Admin: 12/24/16 09:29 Dose: 81 mg Atorvastatin Calcium (Lipitor -) 20 mg PO HS [facility] Last Admin: 12/23/16 21:20 Dose: 20 mg Bacitracin (Bacitracin -) 1 applic TP DAILY [facility] Last Admin: 12/23/16 09:20 Dose: 1 applic Heparin Sodium (Porcine) (Heparin -) 1,000 unit IVPUSH PRN PRN PRN Reason: Heparin Last Admin: 12/24/16 04:42 Dose: 1,000 unit Heparin Sodium (Porcine) (Heparin -) 5,000 unit IVPUSH PRN PRN PRN Reason: Heparin Heparin Sodium/Dextrose (Heparin Infusion -) 500 mls @ 16 mls/hr IVPB TITR [facility] ; 800 UNITS/HR PRN Reason: Protocol Last Admin: 12/24/16 04:42 Dose: 18 mls/hr Lisinopril (Prinivil) 2.5 mg PO DAILY [facility] Last Admin: 12/24/16 09:28 Dose: 2.5 mg Metformin HCl (Glucophage -) 500 mg PO BID@0700,1630 [facility] Last Admin: 12/23/16 16:37 Dose: Not Given - Objective Vital Signs: Vital Signs Temperature 98.0 F 12/24/16 06:00 Pulse Rate 67 12/24/16 06:00 Respiratory Rate 18 12/24/16 06:00 Blood Pressure 150/69 12/24/16 06:00 O2 Sat by Pulse Oximetry (%) 96 12/23/16 21:00 Constitutional: Yes: No Distress, Calm Neck: Yes: Supple Cardiovascular: Yes: Regular Rate and Rhythm Respiratory: Yes: Regular, CTA Bilaterally Gastrointestinal: Yes: Normal Bowel Sounds, Soft Edema: No Labs: CBC, BMP 12/23/16 18:30 12/23/16 18:30 INR, PTT INR 1.15 (0.82-1.09) H 12/20/16 19:30 Problem List - Problems (1) TIA (transient ischemic attack) Code(s): G45.9 - TRANSIENT CEREBRAL ISCHEMIC ATTACK, UNSPECIFIED Qualifiers: Transient cerebral ischemia type: unspecified Qualified Code(s): G45.9 - Transient cerebral ischemic attack, unspecified (2) Hypertensive cardiomyopathy Code(s): I11.9 - HYPERTENSIVE HEART DISEASE WITHOUT HEART FAILURE I42.9 - CARDIOMYOPATHY, UNSPECIFIED Qualifiers: Heart failure presence: without heart failure Qualified Code(s): I11.9 - Hypertensive heart disease without heart failure (3) Hyperlipidemia associated with type 2 diabetes mellitus Code(s): E11.69 - TYPE 2 DIABETES MELLITUS WITH OTHER SPECIFIED COMPLICATION E78.5 - HYPERLIPIDEMIA, UNSPECIFIED (4) Diabetes Code(s): E11.9 - TYPE 2 DIABETES MELLITUS WITHOUT COMPLICATIONS Qualifiers: Diabetes mellitus type: type 2 (5) HTN (hypertension) Code(s): I10 - ESSENTIAL (PRIMARY) HYPERTENSION Qualifiers: Hypertension type: essential hypertension Qualified Code(s): I10 - Essential (primary) hypertension (6) Carotid artery, internal, occlusion Code(s): I65.29 - OCCLUSION AND STENOSIS OF UNSPECIFIED CAROTID ARTERY Qualifiers: Laterality: right Qualified Code(s): I65.21 - Occlusion and stenosis of right carotid artery (7) Chronic kidney disease (CKD) Code(s): N18.9 - CHRONIC KIDNEY DISEASE, UNSPECIFIED Qualifiers: Chronic kidney disease stage: stage 2 (mild) Qualified Code(s): N18.2 - Chronic kidney disease, stage 2 (mild) (8) Mobitz type I Wenckebach atrioventricular block Code(s): I44.1 - ATRIOVENTRICULAR BLOCK, SECOND DEGREE Assessment/Plan 12/22/2016 Echo: Normal LV size and fxn, mild TR, tr-mild MR 12/22/2016 Holter: SR, Type 1 2nd deg AVB Wenckbach overnight 1. Transient altered mental status c/w TIA 2. 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 HTN/HCVD 5. Hyperlipidemia 6. Type 2 DM 7. CKD P:1. Started on heparin gtt, vascular consult pending 2. Continue Norvasc 10 qd, Lipitor 20 qd, ASA 81 qd and lisinopril 2.5 qd. Atenolol d/nicole due to bradycardia 3. Outpatient PSG r/o OSAS/CSA
[2016-12-24] MEDS: BACITRACIN 30 GM TUBE TOPICAL OINTMENT TP SCH (11:34)
--- NOTE | 2016-12-24 13:46 | PN ---
Progress Note, Physician History of Present Illness: 86 year old male with history of hypertension, hyperlipidemia, diabetes, skin CA , bladder CA, was brought in by EMS for a brief episode of altered mental status today. Per the patient's daughter at bedside, the patient was seated at the dinner table around 5 PM when he appeared to lean to the right, drooling, and not responsive. By the time EMS arrived, like 10min. the patient returned to his baseline. The daughter reports she checked the patient's blood sugar at 142. NO CP, FEVER, CHILLS, NAUSEA OR VOMITTING The patient denies diplopia, vertigo, nausea, vomiting. The CT head is negative for acute pathology. The CTA head and neck was read a subacute occlusion right ICA, suspicion for ILEANA dissection. Heparin gtt started last night. - Current Medication List Current Medications: Active Medications Acetaminophen (Tylenol -) 650 mg PO Q6H PRN PRN Reason: FEVER OR PAIN Amlodipine Besylate (Norvasc -) 10 mg PO DAILY [facility] Last Admin: 12/24/16 09:28 Dose: 10 mg Aspirin (Asa -) 81 mg PO DAILY [facility] Last Admin: 12/24/16 09:29 Dose: 81 mg Atorvastatin Calcium (Lipitor -) 20 mg PO HS [facility] Last Admin: 12/23/16 21:20 Dose: 20 mg Bacitracin (Bacitracin -) 1 applic TP DAILY [facility] Last Admin: 12/24/16 11:34 Dose: 1 applic Heparin Sodium (Porcine) (Heparin -) 1,000 unit IVPUSH PRN PRN PRN Reason: Heparin Last Admin: 12/24/16 11:33 Dose: 1,000 unit Heparin Sodium (Porcine) (Heparin -) 5,000 unit IVPUSH PRN PRN PRN Reason: Heparin Heparin Sodium/Dextrose (Heparin Infusion -) 500 mls @ 16 mls/hr IVPB TITR [facility] ; 800 UNITS/HR PRN Reason: Protocol Last Titration: 12/24/16 11:26 Dose: 1,000 units/hr Lisinopril (Prinivil) 2.5 mg PO DAILY [facility] Last Admin: 12/24/16 09:28 Dose: 2.5 mg Metformin HCl (Glucophage -) 500 mg PO BID@0700,1630 [facility] Last Admin: 12/23/16 16:37 Dose: Not Given - Objective Vital Signs: Vital Signs Temperature 98.2 F 12/24/16 10:00 Pulse Rate 85 12/24/16 10:00 Respiratory Rate 18 12/24/16 10:00 Blood Pressure 140/68 12/24/16 10:00 O2 Sat by Pulse Oximetry (%) 96 12/24/16 10:00 Constitutional: Yes: No Distress, Calm Eyes: Yes: Conjunctiva Clear, EOM Intact, PERRL HENT: Yes: Atraumatic, Normocephalic Neck: Yes: Supple, Trachea Midline Cardiovascular: Yes: Regular Rate and Rhythm, S1, S2 Respiratory: Yes: Regular, CTA Bilaterally Gastrointestinal: Yes: Normal Bowel Sounds, Soft ...Rectal Exam: Yes: WNL Genitourinary: Yes: WNL Breast(s): Yes: WNL Musculoskeletal: Yes: WNL Extremities: Yes: WNL Edema: No ...Motor Strength: WNL Psychiatric: Yes: WNL, Alert, Oriented Labs: CBC, BMP 12/23/16 18:30 12/23/16 18:30 INR, PTT INR 1.15 (0.82-1.09) H 12/20/16 19:30 - ....Imaging Cat Scan: Report Reviewed, Image Reviewed Ultrasound: Report Reviewed, Image Reviewed MRI: Report Reviewed, Image Reviewed EKG: Report Reviewed, Image Reviewed Problem List - Problems (1) Syncope and collapse Code(s): R55 - SYNCOPE AND COLLAPSE (2) HTN (hypertension) Code(s): I10 - ESSENTIAL (PRIMARY) HYPERTENSION Qualifiers: Hypertension type: essential hypertension Qualified Code(s): I10 - Essential (primary) hypertension (3) TIA (transient ischemic attack) Code(s): G45.9 - TRANSIENT CEREBRAL ISCHEMIC ATTACK, UNSPECIFIED Qualifiers: Transient cerebral ischemia type: unspecified Qualified Code(s): G45.9 - Transient cerebral ischemic attack, unspecified (4) Hypoglycemia Code(s): E16.2 - HYPOGLYCEMIA, UNSPECIFIED (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 Per the patient's daughter at bedside, the patient was seated at the dinner table around 5 PM when he appeared to lean to the right, drooling, and not responsive. By the time EMS arrived, like 10min. the patient returned to his baseline. The daughter reports she checked the patient's blood sugar at 142. The patient denies diplopia, vertigo, nausea, vomiting. The CT head is negative for acute pathology. Impression: syncope and collapse.orthostatic hypotension, cardiac syncope versus vago vagal syncope. TIA doppler carotids : high grade stenosis right common and right internal carotid. transient nocturnal bradycardia with AVB on holter 48h. CTA head and neck: - suspicion dissection ILEANA MRI brain -negative for acute stroke. Plan: - nonfocal neurological exam , NIHS is 0 - cardiology consult appreciated - started Heparin gtt . last night for dissection ILEANA, if vascular is not doing any procedure to start coumadin today. - vascular consult pending - if need for intervention. - statin, blood pressure control <130mmHg., CHERELLE , metformin- control DM. - to have sleep study to rule out BJ or CSA. -DVT prophylaxis. Thank you for this kind referral. will follow.
[2016-12-24] MEDS ORDERED: WARFARIN NA 10 MG TABLET (FP) PO ONE (16:27)
--- NOTE | 2016-12-24 16:46 | PN ---
Progress Note, Physician History of Present Illness: STABLE - Current Medication List Current Medications: Active Medications Acetaminophen (Tylenol -) 650 mg PO Q6H PRN PRN Reason: FEVER OR PAIN Amlodipine Besylate (Norvasc -) 10 mg PO DAILY [facility] Last Admin: 12/24/16 09:28 Dose: 10 mg Aspirin (Asa -) 81 mg PO DAILY [facility] Last Admin: 12/24/16 09:29 Dose: 81 mg Atorvastatin Calcium (Lipitor -) 20 mg PO HS [facility] Last Admin: 12/23/16 21:20 Dose: 20 mg Bacitracin (Bacitracin -) 1 applic TP DAILY [facility] Last Admin: 12/24/16 11:34 Dose: 1 applic Heparin Sodium (Porcine) (Heparin -) 1,000 unit IVPUSH PRN PRN PRN Reason: Heparin Last Admin: 12/24/16 11:33 Dose: 1,000 unit Heparin Sodium (Porcine) (Heparin -) 5,000 unit IVPUSH PRN PRN PRN Reason: Heparin Heparin Sodium/Dextrose (Heparin Infusion -) 500 mls @ 16 mls/hr IVPB TITR [facility] ; 800 UNITS/HR PRN Reason: Protocol Last Titration: 12/24/16 11:26 Dose: 1,000 units/hr Lisinopril (Prinivil) 2.5 mg PO DAILY [facility] Last Admin: 12/24/16 09:28 Dose: 2.5 mg Metformin HCl (Glucophage -) 500 mg PO BID@0700,1630 [facility] Last Admin: 12/23/16 16:37 Dose: Not Given Warfarin Sodium (Coumadin -) 5 mg PO DAILY@1800 [facility] - Objective Vital Signs: Vital Signs Temperature 98.3 F 12/24/16 14:00 Pulse Rate 88 12/24/16 14:00 Respiratory Rate 20 12/24/16 14:00 Blood Pressure 134/60 12/24/16 14:00 O2 Sat by Pulse Oximetry (%) 96 12/24/16 10:00 Constitutional: Yes: No Distress HENT: Yes: Atraumatic Neck: Yes: Supple Cardiovascular: Yes: Regular Rate and Rhythm Respiratory: Yes: CTA Bilaterally Gastrointestinal: Yes: Normal Bowel Sounds Extremities: Yes: WNL Neurological: Yes: Alert, Oriented Labs: CBC, BMP 12/23/16 18:30 12/23/16 18:30 INR, PTT INR 1.15 (0.82-1.09) H 12/20/16 19:30 Problem List - Problems (1) TIA (transient ischemic attack) Code(s): G45.9 - TRANSIENT CEREBRAL ISCHEMIC ATTACK, UNSPECIFIED Qualifiers: Transient cerebral ischemia type: unspecified Qualified Code(s): G45.9 - Transient cerebral ischemic attack, unspecified (2) Hypoglycemia Code(s): E16.2 - HYPOGLYCEMIA, UNSPECIFIED (3) Hyperlipidemia associated with type 2 diabetes mellitus Code(s): E11.69 - TYPE 2 DIABETES MELLITUS WITH OTHER SPECIFIED COMPLICATION E78.5 - HYPERLIPIDEMIA, UNSPECIFIED (4) HTN (hypertension) Code(s): I10 - ESSENTIAL (PRIMARY) HYPERTENSION Qualifiers: Hypertension type: essential hypertension Qualified Code(s): I10 - Essential (primary) hypertension (5) Diabetes Code(s): E11.9 - TYPE 2 DIABETES MELLITUS WITHOUT COMPLICATIONS Qualifiers: Diabetes mellitus type: type 2 Assessment/Plan A/P 1.TIA RESOLVED CTA acute/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 D/W NEURO SHE HAD STARTED HEPARIN DRIP PER PROTOCOL..also now on coumadin VASCULAR SURGERY CONSULT pending D/W DR JOHNSON CARDIO 2.htn on meds stable 3.dm bgms meds 4.hld on meds dvt pps
[2016-12-24] MEDS: ATORVASTATIN CA 20 MG TABLET (FP) PO SCH (21:09)
--- NOTE | 2016-12-24 22:39 | CONSULT ---
Consult Consult Specialty:: Vascular Surgery - History of Present Illness History of Present Illness: 86 year old male admitted after suffering a ministroke with apparent loss of consciousness and left facial weakness. He was sitting in chair and slumped over for a few seconds. The attack lasted 5 minutes.He was then unable to speak. He has recovered fully. He has no prior history of stroke or TIA. He denies any recent head or neck injury. - History Source History Provided By: Patient, Family Member - Past Medical History Cardio/Vascular: Yes: HTN, Hyperlipdemia Endocrine: Yes: Diabetes Mellitus - Alcohol/Substance Use Hx Alcohol Use: No - Smoking History Smoking history: Former smoker Have you smoked in the past 12 months: No Aproximately how many cigarettes per day: 0 If you are a former smoker, when did you quit?: 50 years ago Home Medications - Allergies Allergies/Adverse Reactions: Allergies Allergy/AdvReac Type Severity Reaction Status Date / Time No Known Allergies Allergy Verified 12/20/16 19:18 - Home Medications Home Medications: Ambulatory Orders Amlodipine Besylate [Norvasc -] 10 mg PO DAILY 12/20/16 Atenolol [Tenormin -] 50 mg PO DAILY 12/20/16 Lisinopril [Zestril] 2.5 mg PO DAILY 12/20/16 Atorvastatin Ca 20 mg PO DAILY 12/21/16 Cholecalciferol (Vitamin D3) [Vitamin D3] 2,000 unit PO DAILY 12/21/16 Glimepiride 2 mg PO DAILY 12/21/16 Metformin HCl 1,000 mg PO DAILY 12/21/16 Naproxen Sodium [Aleve] 220 mg PO BID PRN MDD 440 mg 12/21/16 Physical Exam Vital Signs: Vital Signs Temperature 97.9 F 12/24/16 21:13 Pulse Rate 72 12/24/16 21:13 Respiratory Rate 16 12/24/16 21:13 Blood Pressure 140/65 12/24/16 21:13 O2 Sat by Pulse Oximetry (%) 96 12/24/16 10:00 Constitutional: Yes: Well Nourished, No Distress Eyes: Yes: EOM Intact HENT: Yes: WNL Neck: Yes: WNL, Supple, Other (No bruit) Cardiovascular: Yes: Regular Rate and Rhythm Respiratory: Yes: Regular Gastrointestinal: Yes: Soft Neurological: Yes: Alert, Oriented, Cran Nerves II-XII Intact. No: Aphasia, Dysarthria, Facial Droop, Loss of Sensation ...Motor Strength: WNL Labs: CBC, BMP 12/23/16 18:30 12/23/16 18:30 Imaging - Results Cat Scan: Image Reviewed (CTA showing left ICA occlusion distal to bifurcation with tapered narrowing. Artery remains occluded into petrous portion.) Problem List - Problems (1) Carotid artery dissection Assessment/Plan: CTA consistent with carotid dissection. There is little plaque visible in either carotid. Tapering vessel to occlusion suggests dissection. Usual treatment is anticoagulation with Coumadin. If no further neurologic symptoms medication can be stopped in 3-4 months. Code(s): I77.71 - DISSECTION OF CAROTID ARTERY (2) TIA (transient ischemic attack) Code(s): G45.9 - TRANSIENT CEREBRAL ISCHEMIC ATTACK, UNSPECIFIED Qualifiers: Transient cerebral ischemia type: unspecified Qualified Code(s): G45.9 - Transient cerebral ischemic attack, unspecified
[2016-12-25 07:59] LABS: INR 1.2 (0.82-1.09); PROTHROMBIN TIME (PATIENT) 13.3 SEC (9.98-11.88)
[2016-12-25] MEDS: LISINOPRIL 5 MG TABLET (FP) PO SCH (09:51)
[2016-12-25] MEDS: amLODIPine BESYLATE 10 MG TABLET (FP) PO SCH (09:51)
[2016-12-25] MEDS: BACITRACIN 30 GM TUBE TOPICAL OINTMENT TP SCH (09:55)
[2016-12-25 12:21] LABS: MCH 29.5 pg (25.7-33.7); MCHC 34.4 g/dl (32.0-35.9); MEAN CELL VOLUME 85.6 fl (80-96); PLATELET COUNT 165 K/MM3 (134-434); RDW 14.3 % (11.9-15.9); WHITE BLOOD COUNT 6.3 K/mm3 (4.0-10.0)
--- NOTE | 2016-12-25 13:30 | PN ---
Progress Note (short form) - Note Progress Note: Neurology Progress Note, Physician History of Present Illness: 86 year old male with history of hypertension, hyperlipidemia, diabetes, skin CA , bladder CA, was brought in by EMS for a brief episode of altered mental status today. The CT head is negative for acute pathology. The CTA head and neck was read a subacute occlusion right ICA, suspicion for ILEANA dissection. Heparin gtt started and put on Coumadin. Dr. Orozco recommended medical mgmt not surgical intervention for disection. Neurologically stable. Active Medications Acetaminophen (Tylenol -) 650 mg PO Q6H PRN PRN Reason: FEVER OR PAIN Amlodipine Besylate (Norvasc -) 10 mg PO DAILY [facility] Last Admin: 12/25/16 09:51 Dose: 10 mg Atorvastatin Calcium (Lipitor -) 20 mg PO HS [facility] Last Admin: 12/24/16 21:09 Dose: 20 mg Bacitracin (Bacitracin -) 1 applic TP DAILY [facility] Last Admin: 12/25/16 09:55 Dose: 1 applic Heparin Sodium (Porcine) (Heparin -) 1,000 unit IVPUSH PRN PRN PRN Reason: Heparin Last Admin: 12/24/16 11:33 Dose: 1,000 unit Heparin Sodium (Porcine) (Heparin -) 5,000 unit IVPUSH PRN PRN PRN Reason: Heparin Heparin Sodium/Dextrose (Heparin Infusion -) 500 mls @ 16 mls/hr IVPB TITR [facility] ; 800 UNITS/HR PRN Reason: Protocol Last Titration: 12/25/16 09:41 Dose: 1,000 units/hr Lisinopril (Prinivil) 2.5 mg PO DAILY [facility] Last Admin: 12/25/16 09:51 Dose: 2.5 mg Metformin HCl (Glucophage -) 500 mg PO BID@0700,1630 [facility] Last Admin: 12/23/16 16:37 Dose: Not Given Warfarin Sodium (Coumadin -) 5 mg PO DAILY@1800 [facility] Vital Signs Temperature 98.0 F 12/25/16 10:00 Pulse Rate 79 12/25/16 10:00 Respiratory Rate 16 12/25/16 10:00 Blood Pressure 156/68 12/25/16 10:00 O2 Sat by Pulse Oximetry (%) 96 12/25/16 10:00 Constitutional: Yes: No Distress, Calm Eyes: Yes: Conjunctiva Clear, EOM Intact, PERRL HENT: Yes: Atraumatic, Normocephalic Neck: Yes: Supple, Trachea Midline Cardiovascular: Yes: Regular Rate and Rhythm, S1, S2 Respiratory: Yes: Regular, CTA Bilaterally Gastrointestinal: Yes: Normal Bowel Sounds, Soft ...Rectal Exam: Yes: WNL Genitourinary: Yes: WNL Breast(s): Yes: WNL Musculoskeletal: Yes: WNL Extremities: Yes: WNL Edema: No ...Motor Strength: WNL Psychiatric: Yes: WNL, Alert, Oriented Labs: CBC, BMP 12/25/16 06:03 12/23/16 18:30 - ....Imaging Cat Scan: Report Reviewed, Image Reviewed Ultrasound: Report Reviewed, Image Reviewed MRI: Report Reviewed, Image Reviewed EKG: Report Reviewed, Image Reviewed Problem List - Problems (1) Syncope and collapse Code(s): R55 - SYNCOPE AND COLLAPSE (2) HTN (hypertension) Code(s): I10 - ESSENTIAL (PRIMARY) HYPERTENSION Qualifiers: Hypertension type: essential hypertension Qualified Code(s): I10 - Essential (primary) hypertension (3) TIA (transient ischemic attack) Code(s): G45.9 - TRANSIENT CEREBRAL ISCHEMIC ATTACK, UNSPECIFIED Qualifiers: Transient cerebral ischemia type: unspecified Qualified Code(s): G45.9 - Transient cerebral ischemic attack, unspecified (4) Hypoglycemia Code(s): E16.2 - HYPOGLYCEMIA, UNSPECIFIED (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 The CT head is negative for acute pathology. The CTA head and neck was read a subacute occlusion right ICA, suspicion for ILEANA dissection. Heparin gtt started and put on Coumadin. Dr. Orozco recommended medical mgmt not surgical intervention for disection. Neurologically stable.
--- NOTE | 2016-12-25 15:31 | PN ---
Progress Note, Physician History of Present Illness: STABLE - Current Medication List Current Medications: Active Medications Acetaminophen (Tylenol -) 650 mg PO Q6H PRN PRN Reason: FEVER OR PAIN Amlodipine Besylate (Norvasc -) 10 mg PO DAILY [facility] Last Admin: 12/25/16 09:51 Dose: 10 mg Atorvastatin Calcium (Lipitor -) 20 mg PO HS [facility] Last Admin: 12/24/16 21:09 Dose: 20 mg Bacitracin (Bacitracin -) 1 applic TP DAILY [facility] Last Admin: 12/25/16 09:55 Dose: 1 applic Heparin Sodium (Porcine) (Heparin -) 1,000 unit IVPUSH PRN PRN PRN Reason: Heparin Last Admin: 12/24/16 11:33 Dose: 1,000 unit Heparin Sodium (Porcine) (Heparin -) 5,000 unit IVPUSH PRN PRN PRN Reason: Heparin Heparin Sodium/Dextrose (Heparin Infusion -) 500 mls @ 16 mls/hr IVPB TITR [facility] ; 800 UNITS/HR PRN Reason: Protocol Last Titration: 12/25/16 09:41 Dose: 1,000 units/hr Lisinopril (Prinivil) 2.5 mg PO DAILY [facility] Last Admin: 12/25/16 09:51 Dose: 2.5 mg Metformin HCl (Glucophage -) 500 mg PO BID@0700,1630 [facility] Last Admin: 12/23/16 16:37 Dose: Not Given Warfarin Sodium (Coumadin -) 5 mg PO DAILY@1800 [facility] - Objective Vital Signs: Vital Signs Temperature 98.0 F 12/25/16 10:00 Pulse Rate 79 12/25/16 10:00 Respiratory Rate 16 12/25/16 10:00 Blood Pressure 156/68 12/25/16 10:00 O2 Sat by Pulse Oximetry (%) 96 12/25/16 10:00 Constitutional: Yes: No Distress HENT: Yes: Atraumatic Neck: Yes: Supple Cardiovascular: Yes: Regular Rate and Rhythm Respiratory: Yes: CTA Bilaterally Extremities: Yes: WNL Neurological: Yes: Alert, Oriented Labs: CBC, BMP 12/25/16 06:03 12/23/16 18:30 INR, PTT INR 1.20 (0.82-1.09) H 12/25/16 06:00 Problem List - Problems (1) TIA (transient ischemic attack) Code(s): G45.9 - TRANSIENT CEREBRAL ISCHEMIC ATTACK, UNSPECIFIED Qualifiers: Transient cerebral ischemia type: unspecified Qualified Code(s): G45.9 - Transient cerebral ischemic attack, unspecified (2) Hypoglycemia Code(s): E16.2 - HYPOGLYCEMIA, UNSPECIFIED (3) Hyperlipidemia associated with type 2 diabetes mellitus Code(s): E11.69 - TYPE 2 DIABETES MELLITUS WITH OTHER SPECIFIED COMPLICATION E78.5 - HYPERLIPIDEMIA, UNSPECIFIED (4) HTN (hypertension) Code(s): I10 - ESSENTIAL (PRIMARY) HYPERTENSION Qualifiers: Hypertension type: essential hypertension Qualified Code(s): I10 - Essential (primary) hypertension (5) Diabetes Code(s): E11.9 - TYPE 2 DIABETES MELLITUS WITHOUT COMPLICATIONS Qualifiers: Diabetes mellitus type: type 2 Assessment/Plan A/P 1.TIA RESOLVED CTA acute/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 SURGERY CONSULT REVIEWD PT ON HEPARIN AND COUMADIN ONCE INR THERAPEUTIC CAN BE DC 2.htn on meds stable 3.dm bgms meds 4.hld on meds dvt pps
[2016-12-25] MEDS: HEPARIN INFUSION - 500 ML IVPB SCH (18:05)
[2016-12-25] MEDS: metFORMIN HCL 500 MG TABLET (FP) PO SCH (18:09)
[2016-12-25] MEDS: WARFARIN NA 5 MG TABLET (UD) PO SCH (18:09)
[2016-12-25] MEDS: ATORVASTATIN CA 20 MG TABLET (FP) PO SCH (21:27)
[2016-12-26] MEDS: metFORMIN HCL 500 MG TABLET (FP) PO SCH ×2 (06:38→17:05)
[2016-12-26] MEDS: amLODIPine BESYLATE 10 MG TABLET (FP) PO SCH (09:42)
[2016-12-26] MEDS: BACITRACIN 30 GM TUBE TOPICAL OINTMENT TP SCH (09:42)
[2016-12-26] MEDS: LISINOPRIL 5 MG TABLET (FP) PO SCH (09:42)
[2016-12-26 10:04] LABS: INR 1.4 (0.82-1.09); PROTHROMBIN TIME (PATIENT) 15.5 SEC (9.98-11.88)
--- NOTE | 2016-12-26 10:34 | PN ---
Progress Note, Physician History of Present Illness: Sensorium intact at baseline. - Current Medication List Current Medications: Active Medications Acetaminophen (Tylenol -) 650 mg PO Q6H PRN PRN Reason: FEVER OR PAIN Amlodipine Besylate (Norvasc -) 10 mg PO DAILY [facility] Last Admin: 12/26/16 09:42 Dose: 10 mg Atorvastatin Calcium (Lipitor -) 20 mg PO HS [facility] Last Admin: 12/25/16 21:27 Dose: 20 mg Bacitracin (Bacitracin -) 1 applic TP DAILY [facility] Last Admin: 12/26/16 09:42 Dose: 1 applic Heparin Sodium (Porcine) (Heparin -) 1,000 unit IVPUSH PRN PRN PRN Reason: Heparin Last Admin: 12/24/16 11:33 Dose: 1,000 unit Heparin Sodium (Porcine) (Heparin -) 5,000 unit IVPUSH PRN PRN PRN Reason: Heparin Heparin Sodium/Dextrose (Heparin Infusion -) 500 mls @ 16 mls/hr IVPB TITR [facility] ; 800 UNITS/HR PRN Reason: Protocol Last Titration: 12/26/16 09:00 Dose: 1,000 units/hr Lisinopril (Prinivil) 2.5 mg PO DAILY [facility] Last Admin: 12/26/16 09:42 Dose: 2.5 mg Metformin HCl (Glucophage -) 500 mg PO BID@0700,1630 [facility] Last Admin: 12/26/16 06:38 Dose: 500 mg Warfarin Sodium (Coumadin -) 5 mg PO DAILY@1800 [facility] Last Admin: 12/25/16 18:09 Dose: 5 mg - Objective Vital Signs: Vital Signs Temperature 98.6 F 12/26/16 06:00 Pulse Rate 53 L 12/26/16 06:00 Respiratory Rate 18 12/26/16 06:00 Blood Pressure 146/75 12/26/16 06:00 O2 Sat by Pulse Oximetry (%) 96 12/25/16 21:00 Constitutional: Yes: No Distress, Calm Neck: Yes: Supple Cardiovascular: Yes: Regular Rate and Rhythm, Bradycardia Respiratory: Yes: Regular, CTA Bilaterally Gastrointestinal: Yes: Normal Bowel Sounds, Soft Edema: No Labs: CBC, BMP 12/25/16 06:03 12/23/16 18:30 INR, PTT INR 1.40 (0.82-1.09) H 12/26/16 08:24 Problem List - Problems (1) TIA (transient ischemic attack) Code(s): G45.9 - TRANSIENT CEREBRAL ISCHEMIC ATTACK, UNSPECIFIED Qualifiers: Transient cerebral ischemia type: unspecified Qualified Code(s): G45.9 - Transient cerebral ischemic attack, unspecified (2) Hypertensive cardiomyopathy Code(s): I11.9 - HYPERTENSIVE HEART DISEASE WITHOUT HEART FAILURE I42.9 - CARDIOMYOPATHY, UNSPECIFIED Qualifiers: Heart failure presence: without heart failure Qualified Code(s): I11.9 - Hypertensive heart disease without heart failure (3) Hyperlipidemia associated with type 2 diabetes mellitus Code(s): E11.69 - TYPE 2 DIABETES MELLITUS WITH OTHER SPECIFIED COMPLICATION E78.5 - HYPERLIPIDEMIA, UNSPECIFIED (4) Diabetes Code(s): E11.9 - TYPE 2 DIABETES MELLITUS WITHOUT COMPLICATIONS Qualifiers: Diabetes mellitus type: type 2 (5) HTN (hypertension) Code(s): I10 - ESSENTIAL (PRIMARY) HYPERTENSION Qualifiers: Hypertension type: essential hypertension Qualified Code(s): I10 - Essential (primary) hypertension (6) Carotid artery, internal, occlusion Code(s): I65.29 - OCCLUSION AND STENOSIS OF UNSPECIFIED CAROTID ARTERY Qualifiers: Laterality: right Qualified Code(s): I65.21 - Occlusion and stenosis of right carotid artery (7) Chronic kidney disease (CKD) Code(s): N18.9 - CHRONIC KIDNEY DISEASE, UNSPECIFIED Qualifiers: Chronic kidney disease stage: stage 2 (mild) Qualified Code(s): N18.2 - Chronic kidney disease, stage 2 (mild) (8) Mobitz type I Wenckebach atrioventricular block Code(s): I44.1 - ATRIOVENTRICULAR BLOCK, SECOND DEGREE Assessment/Plan 12/22/2016 Echo: Normal LV size and fxn, mild TR, tr-mild MR 12/22/2016 Holter: SR, Type 1 2nd deg AVB Wenckbach overnight 1. Transient altered mental status c/w TIA 2. 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 HTN/HCVD 5. Hyperlipidemia 6. Type 2 DM 7. CKD P:1.Continue heparin gtt->coumadin per INR currently subtherapeutic, vascular input appreciated 2. Continue Norvasc 10 qd, Lipitor 20 qd and lisinopril 2.5 qd. Atenolol d/nicole due to bradycardia 3. Outpatient PSG r/o OSAS/CSA
[2016-12-26 16:34] LABS: INR 1.42 (0.82-1.09); PROTHROMBIN TIME (PATIENT) 15.7 SEC (9.98-11.88)
[2016-12-26] MEDS: WARFARIN NA 5 MG TABLET (UD) PO SCH (17:06)
[2016-12-26] MEDS: ATORVASTATIN CA 20 MG TABLET (FP) PO SCH (21:16)
[2016-12-26] MEDS: HEPARIN INFUSION - 500 ML IVPB SCH (21:18)
--- NOTE | 2016-12-26 23:25 | PN ---
Progress Note, Physician - Current Medication List Current Medications: Active Medications Acetaminophen (Tylenol -) 650 mg PO Q6H PRN PRN Reason: FEVER OR PAIN Amlodipine Besylate (Norvasc -) 10 mg PO DAILY [facility] Last Admin: 12/26/16 09:42 Dose: 10 mg Atorvastatin Calcium (Lipitor -) 20 mg PO HS [facility] Last Admin: 12/26/16 21:16 Dose: 20 mg Bacitracin (Bacitracin -) 1 applic TP DAILY [facility] Last Admin: 12/26/16 09:42 Dose: 1 applic Heparin Sodium (Porcine) (Heparin -) 1,000 unit IVPUSH PRN PRN PRN Reason: Heparin Last Admin: 12/24/16 11:33 Dose: 1,000 unit Heparin Sodium (Porcine) (Heparin -) 5,000 unit IVPUSH PRN PRN PRN Reason: Heparin Heparin Sodium/Dextrose (Heparin Infusion -) 500 mls @ 16 mls/hr IVPB TITR [facility] ; 800 UNITS/HR PRN Reason: Protocol Last Admin: 12/26/16 21:18 Dose: Not Given Lisinopril (Prinivil) 2.5 mg PO DAILY [facility] Last Admin: 12/26/16 09:42 Dose: 2.5 mg Metformin HCl (Glucophage -) 500 mg PO BID@0700,1630 [facility] Last Admin: 12/26/16 17:05 Dose: 500 mg Warfarin Sodium (Coumadin -) 5 mg PO DAILY@1800 [facility] Last Admin: 12/26/16 17:06 Dose: 5 mg - Objective Vital Signs: Vital Signs Temperature 97.9 F 12/26/16 18:00 Pulse Rate 94 H 12/26/16 18:00 Respiratory Rate 18 12/26/16 18:00 Blood Pressure 152/76 12/26/16 18:00 O2 Sat by Pulse Oximetry (%) 96 12/26/16 10:00 Labs: CBC, BMP 12/25/16 06:03 12/23/16 18:30 INR, PTT INR 1.42 (0.82-1.09) H 12/26/16 15:40
[2016-12-27] MEDS: metFORMIN HCL 500 MG TABLET (FP) PO SCH ×2 (06:25→18:07)
[2016-12-27 07:18] LABS: INR 1.74 (0.82-1.09); PROTHROMBIN TIME (PATIENT) 19.4 SEC (9.98-11.88)
[2016-12-27 10:01] LABS: MCH 29.5 pg (25.7-33.7); MCHC 34.2 g/dl (32.0-35.9); MEAN CELL VOLUME 86.4 fl (80-96); PLATELET COUNT 160 K/MM3 (134-434); WHITE BLOOD COUNT 5.7 K/mm3 (4.0-10.0)
[2016-12-27] MEDS: LISINOPRIL 5 MG TABLET (FP) PO SCH (10:25)
[2016-12-27] MEDS: amLODIPine BESYLATE 10 MG TABLET (FP) PO SCH (10:25)
--- NOTE | 2016-12-27 10:49 | PN ---
Progress Note, Physician Chief Complaint: Events noted Not in distress moving all extremities History of Present Illness: Patient was seen and examined. Awake and alert. Chart was reviewed Denies chest pain, SOB or palpitations - Current Medication List Current Medications: Active Medications Acetaminophen (Tylenol -) 650 mg PO Q6H PRN PRN Reason: FEVER OR PAIN Amlodipine Besylate (Norvasc -) 10 mg PO DAILY [facility] Last Admin: 12/27/16 10:25 Dose: 10 mg Atorvastatin Calcium (Lipitor -) 20 mg PO HS [facility] Last Admin: 12/26/16 21:16 Dose: 20 mg Bacitracin (Bacitracin -) 1 applic TP DAILY [facility] Last Admin: 12/26/16 09:42 Dose: 1 applic Heparin Sodium (Porcine) (Heparin -) 1,000 unit IVPUSH PRN PRN PRN Reason: Heparin Last Admin: 12/24/16 11:33 Dose: 1,000 unit Heparin Sodium (Porcine) (Heparin -) 5,000 unit IVPUSH PRN PRN PRN Reason: Heparin Heparin Sodium/Dextrose (Heparin Infusion -) 500 mls @ 16 mls/hr IVPB TITR [facility] ; 800 UNITS/HR PRN Reason: Protocol Last Admin: 12/26/16 21:18 Dose: Not Given Lisinopril (Prinivil) 2.5 mg PO DAILY [facility] Last Admin: 12/27/16 10:25 Dose: 2.5 mg Metformin HCl (Glucophage -) 500 mg PO BID@0700,1630 [facility] Last Admin: 12/27/16 06:25 Dose: 500 mg Warfarin Sodium (Coumadin -) 5 mg PO DAILY@1800 [facility] Last Admin: 12/26/16 17:06 Dose: 5 mg - Objective Vital Signs: Vital Signs Temperature 97.7 F 12/27/16 06:00 Pulse Rate 76 12/27/16 06:00 Respiratory Rate 18 12/27/16 06:00 Blood Pressure 130/66 12/27/16 06:00 O2 Sat by Pulse Oximetry (%) 99 12/26/16 21:00 Neck: Yes: Supple Cardiovascular: Yes: Regular Rate and Rhythm Respiratory: Yes: Regular, CTA Bilaterally Gastrointestinal: Yes: Normal Bowel Sounds, Soft. No: Tenderness Edema: No Labs: CBC, BMP 12/27/16 09:45 12/23/16 18:30 INR, PTT INR 1.74 (0.82-1.09) H 12/27/16 05:35 Problem List - Problems (1) Carotid artery, internal, occlusion Code(s): I65.29 - OCCLUSION AND STENOSIS OF UNSPECIFIED CAROTID ARTERY Qualifiers: Laterality: right Qualified Code(s): I65.21 - Occlusion and stenosis of right carotid artery (2) Chronic kidney disease (CKD) Code(s): N18.9 - CHRONIC KIDNEY DISEASE, UNSPECIFIED Qualifiers: Chronic kidney disease stage: stage 2 (mild) Qualified Code(s): N18.2 - Chronic kidney disease, stage 2 (mild) (3) Diabetes Code(s): E11.9 - TYPE 2 DIABETES MELLITUS WITHOUT COMPLICATIONS Qualifiers: Diabetes mellitus type: type 2 (4) HTN (hypertension) Code(s): I10 - ESSENTIAL (PRIMARY) HYPERTENSION Qualifiers: Hypertension type: essential hypertension Qualified Code(s): I10 - Essential (primary) hypertension (5) Hyperlipidemia associated with type 2 diabetes mellitus Code(s): E11.69 - TYPE 2 DIABETES MELLITUS WITH OTHER SPECIFIED COMPLICATION E78.5 - HYPERLIPIDEMIA, UNSPECIFIED (6) Hypertensive cardiomyopathy Code(s): I11.9 - HYPERTENSIVE HEART DISEASE WITHOUT HEART FAILURE I42.9 - CARDIOMYOPATHY, UNSPECIFIED Qualifiers: Heart failure presence: without heart failure Qualified Code(s): I11.9 - Hypertensive heart disease without heart failure (7) Mobitz type I Wenckebach atrioventricular block Code(s): I44.1 - ATRIOVENTRICULAR BLOCK, SECOND DEGREE (8) TIA (transient ischemic attack) Code(s): G45.9 - TRANSIENT CEREBRAL ISCHEMIC ATTACK, UNSPECIFIED Qualifiers: Transient cerebral ischemia type: unspecified Qualified Code(s): G45.9 - Transient cerebral ischemic attack, unspecified Assessment/Plan 1. TIA 2. 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 Second degree AV block (nocturnal) Mobitz I (wenchebach) - consider obstructive sleep apnea 4. HTN/HCVD 5. Hyperlipidemia 6. Type 2 DM 7. CKD PLAN: 1. Continue heparin drip and Coumadin per INR to maintain 2.0-3.0 2. Continue Norvasc 10 mg qd, Lipitor 20 mg qd and Lisinopril 2.5 mg qd. Beta epi stopped 3. Outpatient sleep study to document OSAS - if so, CPAP trial. Shaun Pittman MD
[2016-12-27] MEDS: BACITRACIN 30 GM TUBE TOPICAL OINTMENT TP SCH (12:30)
--- NOTE | 2016-12-27 17:52 | PN ---
Progress Note, Physician History of Present Illness: STABLE - Current Medication List Current Medications: Active Medications Acetaminophen (Tylenol -) 650 mg PO Q6H PRN PRN Reason: FEVER OR PAIN Amlodipine Besylate (Norvasc -) 10 mg PO DAILY [facility] Last Admin: 12/27/16 10:25 Dose: 10 mg Atorvastatin Calcium (Lipitor -) 20 mg PO HS [facility] Last Admin: 12/26/16 21:16 Dose: 20 mg Bacitracin (Bacitracin -) 1 applic TP DAILY [facility] Last Admin: 12/26/16 09:42 Dose: 1 applic Heparin Sodium (Porcine) (Heparin -) 1,000 unit IVPUSH PRN PRN PRN Reason: Heparin Last Admin: 12/24/16 11:33 Dose: 1,000 unit Heparin Sodium (Porcine) (Heparin -) 5,000 unit IVPUSH PRN PRN PRN Reason: Heparin Heparin Sodium/Dextrose (Heparin Infusion -) 500 mls @ 16 mls/hr IVPB TITR [facility] ; 800 UNITS/HR PRN Reason: Protocol Last Admin: 12/26/16 21:18 Dose: Not Given Lisinopril (Prinivil) 2.5 mg PO DAILY [facility] Last Admin: 12/27/16 10:25 Dose: 2.5 mg Metformin HCl (Glucophage -) 500 mg PO BID@0700,1630 [facility] Last Admin: 12/27/16 06:25 Dose: 500 mg Warfarin Sodium (Coumadin -) 5 mg PO DAILY@1800 [facility] Last Admin: 12/26/16 17:06 Dose: 5 mg - Objective Vital Signs: Vital Signs Temperature 98.0 F 12/27/16 17:04 Pulse Rate 91 H 12/27/16 17:04 Respiratory Rate 18 12/27/16 17:04 Blood Pressure 126/48 12/27/16 17:04 O2 Sat by Pulse Oximetry (%) 99 12/27/16 09:00 Constitutional: Yes: No Distress HENT: Yes: Atraumatic Neck: Yes: Supple Cardiovascular: Yes: Regular Rate and Rhythm Respiratory: Yes: CTA Bilaterally Gastrointestinal: Yes: Normal Bowel Sounds Extremities: Yes: WNL Neurological: Yes: Alert, Oriented Labs: CBC, BMP 12/27/16 09:45 12/23/16 18:30 INR, PTT INR 1.74 (0.82-1.09) H 12/27/16 05:35 Problem List - Problems (1) TIA (transient ischemic attack) Code(s): G45.9 - TRANSIENT CEREBRAL ISCHEMIC ATTACK, UNSPECIFIED Qualifiers: Transient cerebral ischemia type: unspecified Qualified Code(s): G45.9 - Transient cerebral ischemic attack, unspecified (2) Hypoglycemia Code(s): E16.2 - HYPOGLYCEMIA, UNSPECIFIED (3) Hyperlipidemia associated with type 2 diabetes mellitus Code(s): E11.69 - TYPE 2 DIABETES MELLITUS WITH OTHER SPECIFIED COMPLICATION E78.5 - HYPERLIPIDEMIA, UNSPECIFIED (4) HTN (hypertension) Code(s): I10 - ESSENTIAL (PRIMARY) HYPERTENSION Qualifiers: Hypertension type: essential hypertension Qualified Code(s): I10 - Essential (primary) hypertension (5) Diabetes Code(s): E11.9 - TYPE 2 DIABETES MELLITUS WITHOUT COMPLICATIONS Qualifiers: Diabetes mellitus type: type 2 Assessment/Plan A/P 1.TIA RESOLVED CTA acute/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 SURGERY CONSULT REVIEWD PT ON HEPARIN AND COUMADIN ONCE INR THERAPEUTIC CAN BE DC 2.htn on meds stable 3.dm bgms meds 4.hld on meds dvt pps
[2016-12-27] MEDS: HEPARIN INFUSION - 500 ML IVPB SCH (18:07)
[2016-12-27] MEDS: WARFARIN NA 5 MG TABLET (UD) PO SCH (18:11)
[2016-12-27] MEDS: ATORVASTATIN CA 20 MG TABLET (FP) PO SCH (21:15)
[2016-12-28] MEDS: metFORMIN HCL 500 MG TABLET (FP) PO SCH (06:36)
--- NOTE | 2016-12-28 07:12 | PN ---
Progress Note (short form) - Note Progress Note: Chief Complaint: Events noted, notes reviewed, denies any chest pain or dyspnea , denies any neurologic deficits History of Present Illness: Seen and examined on telemetry. Events noted, notes reviewed, denies any chest pain or dyspnea, denies any neurologic deficits INR noted in the therapeutic range, Heparin can be D/C and continue Coumadin for at least 4-5 months as per vascular consult recommendations and then ASA therapy - Current Medication List Current Medications Acetaminophen (Tylenol -) 650 mg PO Q6H PRN PRN Reason: FEVER OR PAIN Amlodipine Besylate (Norvasc -) 10 mg PO DAILY [facility] Last Admin: 12/27/16 10:25 Dose: 10 mg Atorvastatin Calcium (Lipitor -) 20 mg PO HS [facility] Last Admin: 12/27/16 21:15 Dose: 20 mg Bacitracin (Bacitracin -) 1 applic TP DAILY [facility] Last Admin: 12/27/16 12:30 Dose: 1 applic Heparin Sodium (Porcine) (Heparin -) 1,000 unit IVPUSH PRN PRN PRN Reason: Heparin Last Admin: 12/24/16 11:33 Dose: 1,000 unit Heparin Sodium (Porcine) (Heparin -) 5,000 unit IVPUSH PRN PRN PRN Reason: Heparin Heparin Sodium/Dextrose (Heparin Infusion -) 500 mls @ 16 mls/hr IVPB TITR [facility] ; 800 UNITS/HR PRN Reason: Protocol Last Admin: 12/27/16 18:07 Dose: 20 mls/hr Lisinopril (Prinivil) 2.5 mg PO DAILY [facility] Last Admin: 12/27/16 10:25 Dose: 2.5 mg Metformin HCl (Glucophage -) 500 mg PO BID@0700,1630 [facility] Last Admin: 12/28/16 06:36 Dose: 500 mg Warfarin Sodium (Coumadin -) 5 mg PO DAILY@1800 [facility] Last Admin: 12/27/16 18:11 Dose: 5 mg Review of Systems Cardiovascular: As noted above Respiratory: denies: denies: Cough or Sputum Production Gastrointestinal: denies: Nausea, Vomiting, Diarrhea, Constipation or Abdominal Discomfort Musculoskeletal: No Symptoms Reported Endocrine: No Symptoms Reported - Objective Vital Signs: Last Vital Signs Temp Pulse Resp BP Pulse Ox 98.2 F 81 18 148/71 99 12/28/16 05:00 12/28/16 05:00 12/28/16 05:00 12/28/16 05:00 12/27/16 20:39 Neck: Supple Negative JVD No Bruit Cardiovascular: S1 S2 Regular Rate and Rhythm Respiratory: Clear to A&P Bilaterally Gastrointestinal: Soft Benign Normal Bowel Sounds Ext: No Edema Labs: CBC, BMP 12/27/16 09:45 12/23/16 18:30 INR, PTT INR 2.06 (0.82-1.09) H 12/28/16 05:35 Assessment/Plan ASSESSMENT: 1. TIA 2. 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 Second degree AV block (nocturnal) Mobitz I (Joel) - consider obstructive sleep apnea 4. HTN 5. DM 6. Hyperlipidemia 7. CKD PLAN: 1. Continue Coumadin as per INR to maintain 2.0-3.0 and D/C Heparin drip 2. Continue Norvasc 3. Continue Lisinopril 4. Continue Lipitor 5. Recommend outpatient sleep study to document OSAS 6. Outpatient F/U in the office for INR monitoring Brenda Ford MD
[2016-12-28 07:14] LABS: INR 2.06 (0.82-1.09)
[2016-12-28] MEDS ORDERED: WARFARIN NA 5 MG TABLET (UD) PO SCH (08:47)
[2016-12-28] MEDS: amLODIPine BESYLATE 10 MG TABLET (FP) PO SCH (09:45)
[2016-12-28] MEDS: LISINOPRIL 5 MG TABLET (FP) PO SCH (09:45)
--- NOTE | 2016-12-28 11:52 | DS ---
Physical Examination Vital Signs: Vital Signs Temperature 98.2 F 12/28/16 05:00 Pulse Rate 81 12/28/16 05:00 Respiratory Rate 18 12/28/16 05:00 Blood Pressure 148/71 12/28/16 05:00 O2 Sat by Pulse Oximetry (%) 99 12/27/16 20:39 Labs: CBC, BMP 12/27/16 09:45 12/23/16 18:30 Discharge Summary Reason For Visit: TRANSIENT CEREBRAL ISCHEMIA Current Active Problems Anemia (Acute) Carotid artery dissection (Acute) Carotid artery occlusion without infarction (Acute) Carotid artery, internal, occlusion (Acute) Chronic kidney disease (CKD) (Acute) Diabetes (Acute) HTN (hypertension) (Acute) Hyperlipidemia associated with type 2 diabetes mellitus (Acute) Hypertensive cardiomyopathy (Acute) Mobitz type I Wenckebach atrioventricular block (Acute) Syncope and collapse (Acute) TIA (transient ischemic attack) (Acute) - Instructions Referrals: Glenn Hawk [Primary Care Provider] - - Home Medications Comprehensive Discharge Medication List: Ambulatory Orders Amlodipine Besylate [Norvasc -] 10 mg PO DAILY 12/20/16 Lisinopril [Zestril] 2.5 mg PO DAILY 12/20/16 Atorvastatin Ca 20 mg PO DAILY 12/21/16 Cholecalciferol (Vitamin D3) [Vitamin D3] 2,000 unit PO DAILY 12/21/16 Glimepiride 2 mg PO DAILY 12/21/16 Metformin HCl 1,000 mg PO DAILY 12/21/16 Atorvastatin Ca [Lipitor] 20 mg PO HS #30 tablet 12/27/16 Lisinopril [Prinivil] 2.5 mg PO DAILY #30 tablet 12/27/16 Metformin HCl [Glucophage -] 500 mg PO BID@0700,1630 #60 tablet 12/27/16 Warfarin Na [Coumadin -] 5 mg PO DAILY@1800 #30 tablet 12/27/16
[2016-12-28 13:18] VITALS: BP 120/47; PULSE 99; TEMP 97.8
== END 2016-12-28 15:14 | disposition home or self-care (01) | DRG 300 ==
LOC: JER 19:15 → JERBED 20:34 → J4S 23:32
PROVIDERS: ADMIT Internal Medicine; ATTEND Internal Medicine
DX: I77.71 Dissection of carotid artery (principal); G45.9 Transient cerebral ischemic attack, unspecified; I13.0 Hypertensive heart and chronic kidney disease with heart failure and stage 1 through stage 4 chronic kidney disease, or unspecified chronic kidney disease; E78.5 Hyperlipidemia, unspecified; E11.649 Type 2 diabetes mellitus with hypoglycemia without coma; Z79.84 Long term (current) use of oral hypoglycemic drugs; Z87.891 Personal history of nicotine dependence; Z85.51 Personal history of malignant neoplasm of bladder; Z85.828 Personal history of other malignant neoplasm of skin; D64.9 Anemia, unspecified; I95.1 Orthostatic hypotension; I44.1 Atrioventricular block, second degree; N18.2 Chronic kidney disease, stage 2 (mild); I13.10 Hypertensive heart and chronic kidney disease without heart failure, with stage 1 through stage 4 chronic kidney disease, or unspecified chronic kidney disease; E11.22 Type 2 diabetes mellitus with diabetic chronic kidney disease
CPT/HCPCS: 36415; 70450-TC; 70496-TC; 70498-TC; 70551-TC; 71010-TC; 80053; 81003; 82465; 82550; 83036; 83718; 83721; 84478; 84484; 85025; 85027; 85610; 85730; 86850; 86900; 86901; 93005; 93010; 93225; 93226; 93306-TC; 93880-TC; 97116-GP; 97161-GP; 99285-25; J1644

== ENCOUNTER 2021-02-04 15:15 | Inpatient (IN) | payer OTHER, MEDICARE ==
[2021-02-04] MEDS ORDERED: SODIUM CHLORIDE 500 ML IV STA ×2 (16:51→17:42)
[2021-02-04] MEDS ORDERED: ONDANSETRON 4 MG/2 ML VIAL IVPUSH ONE ×2 (16:51→20:53)
[2021-02-04] MEDS ORDERED: ONDANSETRON 4 MG/2 ML VIAL ONE ×2 (17:03→21:02)
[2021-02-04 17:04] LABS: BASO % 0.1 % (0-2.0); HEMATOCRIT 43.8 % (35.4-49); HEMOGLOBIN 14.9 GM/dL (11.7-16.9); LYMPH % 3.3 % (8-40); MCH 29.5 pg (25.7-33.7); MCHC 33.9 g/dl (32.0-35.9); MEAN CELL VOLUME 86.9 fl (80-96); MEAN PLT VOLUME 8.5 fl (7.5-11.1); MONO % 3.5 % (3.8-10.2); NEUT % 93.1 % (42.8-82.8); PLATELET COUNT 202 K/MM3 (134-434); RBC 5.04 M/mm3 (4.00-5.60); WHITE BLOOD COUNT 12.4 K/mm3 (4.0-10.0)
[2021-02-04 17:26] LABS: CHLORIDE 107 mmol/L (98-107); SODIUM 140 mmol/L (136-145)
[2021-02-04 17:30] LABS: ALBUMIN 3.8 g/dl (3.4-5.0); ANION GAP 9 MMOL/L (8-16); CO2 24 mmol/L (21-32); GLUCOSE,RANDOM 294 mg/dL (74-106); LIPASE 93 U/L (73-393)
[2021-02-04 17:32] LABS: CREATININE 1.4 mg/dL (0.55-1.3); SGOT/AST 22 U/L (15-37); SGPT/ALT 33 U/L (13-61)
[2021-02-04 17:34] LABS: BILIRUBIN,TOTAL 0.6 mg/dL (0.2-1); TOT PROT 7.2 g/dl (6.4-8.2)
[2021-02-04 17:36] LABS: ALK PHOS 152 U/L (45-117)
[2021-02-04 17:55] LABS: ANISOCYTOSIS 0; MACROCYTOSIS 0; PLATELET ESTIMATE NORMAL
[2021-02-04] MEDS ORDERED: LACTATED RINGERS SOLUTION 1000 ML INFUS.BAG IV ONE (19:09)
[2021-02-04] MEDS ORDERED: LACTATED RINGERS SOLUTION 1,000 ML/1,000 ML INFUS.BAG IV STA (19:21)
[2021-02-04] MEDS ORDERED: LIDOCAINE VISCOUS 2% ORAL/TOP 20 ML UNIT-DOSE CUP MM ONE (20:53)
[2021-02-04] MEDS ORDERED: LIDOCAINE HCL 2% JELLY (5 ML/TUBE) ONE (21:02)
[2021-02-04] MEDS ORDERED: LIDOCAINE HCL 2% JELLY 10 ML CARTRIDGE ONE (21:02)
[2021-02-05 01:50] LABS: INR 2.82 (0.83-1.09); PROTHROMBIN TIME (PATIENT) 33.7 SEC (9.7-13.0)
[2021-02-05 02:16] LABS: LACTIC ACID 4.3 mmol/L (0.4-2.0)
[2021-02-05] MEDS ORDERED: LACTATED RINGERS SOLUTION 1000 ML INFUS.BAG IV ONE (02:35)
[2021-02-05] MEDS ORDERED: SODIUM CHLORIDE 500 ML IV STA (02:41)
[2021-02-05] MEDS ORDERED: LIDOCAINE HCL 2% JELLY 10 ML CARTRIDGE ONE (02:49)
[2021-02-05 08:26] LABS: HEMATOCRIT 41.7 % (35.4-49); HEMOGLOBIN 13.8 GM/dL (11.7-16.9); LYMPH % 4.8 % (8-40); MCH 29.7 pg (25.7-33.7); MCHC 33.1 g/dl (32.0-35.9); MEAN CELL VOLUME 89.6 fl (80-96); MEAN PLT VOLUME 8.9 fl (7.5-11.1); MONO % 7.3 % (3.8-10.2); NEUT % 87.9 % (42.8-82.8); PLATELET COUNT 170 K/MM3 (134-434); RBC 4.66 M/mm3 (4.00-5.60); RDW 14.2 % (11.9-15.9); WHITE BLOOD COUNT 6.4 K/mm3 (4.0-10.0)
[2021-02-05] MEDS ORDERED: VANCOMYCIN 1 GM in D5W (PRE-DOCKED) 1,000 MG/250 ML IVPB ONE (08:27)
[2021-02-05] MEDS ORDERED: PIPERACILLIN/TAZOB 4.5 GM 4.5 GM in DEXTROSE 5%-WATER 100 ML IVPB ONE (08:31)
[2021-02-05 08:36] LABS: BLOOD UREA NITROGEN 20.5 mg/dL (7-18); CALCIUM 8.4 mg/dL (8.5-10.1)
[2021-02-05 08:40] LABS: CREATININE 1.2 mg/dL (0.55-1.3); TOT PROT 5.9 g/dl (6.4-8.2)
[2021-02-05] MEDS ORDERED: SODIUM CHLORIDE 1,000 ML IV SCH (08:45)
[2021-02-05] MEDS ORDERED: PIPERACILLIN/TAZOBACTAM 4.5 GM VIAL IVPB ONE (08:56)
[2021-02-05] MEDS ORDERED: DEXTROSE 5%-WATER 100 ML IVPB ONE (08:57)
[2021-02-05] MEDS ORDERED: ACETAMINOPHEN 1000 MG/100 ML VIAL (NON FORMULARY) IVPB PRN (09:41)
[2021-02-05] MEDS ORDERED: ONDANSETRON 4 MG/2 ML VIAL IVPUSH PRN (09:41)
[2021-02-05] MEDS: PANTOPRAZOLE SODIUM 40 MG VIAL IVPUSH SCH (12:18)
[2021-02-05] MEDS ORDERED: DEXTROSE 5%-WATER - 50 ML IVPB ONE (17:40)
[2021-02-05] MEDS ORDERED: PIPERACILLIN/TAZOBACTAM 2.25 GM VIAL IVPB ONE (17:40)
[2021-02-05] MEDS: PIPERACILLIN/TAZOB 2.25 GM 2.25 GM in DEXTROSE 5%-WATER - 50 ML IVPB SCH (18:07)
[2021-02-05] MEDS: D5-NS + 20 MEQ KCL - 20 MEQ/1,000 ML INFUS.BAG IV SCH (18:08)
[2021-02-05 19:58] LABS: URINE COLOR YELLOW
[2021-02-05 19:59] LABS: URINE APPEARANCE CLEAR; URINE BILIRUBIN NEGATIVE (NEGATIVE); URINE GLUCOSE (UA) NEGATIVE (NEGATIVE); URINE KETONE TRACE (NEGATIVE); URINE PROTEIN 30 (NEGATIVE)
[2021-02-05 20:00] LABS: URINE LEUK ESTERASE NEGATIVE (NEGATIVE); URINE NITRITE NEGATIVE (NEGATIVE)
[2021-02-05 20:30] LABS: EPI CELLS 55.6 /uL (0-25.1); HYALINE CASTS 1.79 /uL (0-3.1); URINE BACTERIA 24.8 /uL (0-1359); URINE RBC 76.3 /uL (0-23.9)
[2021-02-06] MEDS ORDERED: PIPERACILLIN/TAZOBACTAM 2.25 GM VIAL IVPB ONE ×2 (01:23→10:53)
[2021-02-06] MEDS ORDERED: DEXTROSE 5%-WATER - 50 ML IVPB ONE ×3 (01:24→16:46)
[2021-02-06] MEDS: PIPERACILLIN/TAZOB 2.25 GM 2.25 GM in DEXTROSE 5%-WATER - 50 ML IVPB SCH ×2 (02:08→11:00)
[2021-02-06] MEDS: PANTOPRAZOLE SODIUM 40 MG VIAL IVPUSH SCH (11:00)
[2021-02-06 14:38] LABS: BASO % 0.3 % (0-2.0); EOS % 1.6 % (0-4.5); HEMATOCRIT 35.7 % (35.4-49); HEMOGLOBIN 12.2 GM/dL (11.7-16.9); LYMPH % 8.6 % (8-40); MCH 30.1 pg (25.7-33.7); MCHC 34.2 g/dl (32.0-35.9); MEAN CELL VOLUME 87.9 fl (80-96); MEAN PLT VOLUME 8.8 fl (7.5-11.1); MONO % 8.2 % (3.8-10.2); NEUT % 81.3 % (42.8-82.8); PLATELET COUNT 141 K/MM3 (134-434); RBC 4.06 M/mm3 (4.00-5.60); RDW 14.1 % (11.9-15.9)
[2021-02-06 14:44] LABS: INR 3.33 (0.83-1.09); PROTHROMBIN TIME (PATIENT) 39.5 SEC (9.7-13.0)
[2021-02-06 15:05] LABS: ALBUMIN 2.7 g/dl (3.4-5.0); CALCIUM 7.9 mg/dL (8.5-10.1)
[2021-02-06 15:08] LABS: CREATININE 1.2 mg/dL (0.55-1.3)
[2021-02-06 15:11] LABS: TOT PROT 5.4 g/dl (6.4-8.2)
[2021-02-06] MEDS ORDERED: PIPERACILLIN/TAZOBACTAM 3.375 GM VIAL IVPB ONE (16:46)
[2021-02-06] MEDS: D5-NS + 20 MEQ KCL - 20 MEQ/1,000 ML INFUS.BAG IV SCH (17:21)
[2021-02-06] MEDS: METOPROLOL TARTRATE 5 MG/5 ML VIAL IVPB PRN (17:22)
[2021-02-06] MEDS: PIPERACILLIN/TAZOB 3.375 GM 3.375 GM in DEXTROSE 5%-WATER - 50 ML IVPB SCH (17:22)
[2021-02-07] MEDS ORDERED: PIPERACILLIN/TAZOBACTAM 3.375 GM VIAL IVPB ONE ×3 (00:52→17:59)
[2021-02-07] MEDS ORDERED: DEXTROSE 5%-WATER - 50 ML IVPB ONE ×3 (00:53→17:59)
[2021-02-07] MEDS: PIPERACILLIN/TAZOB 3.375 GM 3.375 GM in DEXTROSE 5%-WATER - 50 ML IVPB SCH ×3 (01:50→18:02)
[2021-02-07] MEDS: D5-NS + 20 MEQ KCL - 20 MEQ/1,000 ML INFUS.BAG IV SCH ×2 (08:15→15:48)
[2021-02-07 09:04] LABS: BASO % 0.5 % (0-2.0); EOS % 1.1 % (0-4.5); HEMATOCRIT 35.9 % (35.4-49); HEMOGLOBIN 12.6 GM/dL (11.7-16.9); LYMPH % 6.1 % (8-40); MCH 30.2 pg (25.7-33.7); MEAN CELL VOLUME 86.5 fl (80-96); MEAN PLT VOLUME 8.7 fl (7.5-11.1); MONO % 7.8 % (3.8-10.2); NEUT % 84.5 % (42.8-82.8); PLATELET COUNT 136 K/MM3 (134-434); RBC 4.15 M/mm3 (4.00-5.60); RDW 13.7 % (11.9-15.9); WHITE BLOOD COUNT 8.2 K/mm3 (4.0-10.0)
[2021-02-07] MEDS: PANTOPRAZOLE SODIUM 40 MG VIAL IVPUSH SCH (09:41)
[2021-02-07 10:26] LABS: CALCIUM 7.8 mg/dL (8.5-10.1)
[2021-02-07 10:27] LABS: ALBUMIN 2.7 g/dl (3.4-5.0); BLOOD UREA NITROGEN 15.9 mg/dL (7-18)
[2021-02-07 10:30] LABS: CREATININE 1.1 mg/dL (0.55-1.3)
[2021-02-07 10:31] LABS: TOT PROT 5.6 g/dl (6.4-8.2)
[2021-02-07 14:11] LABS: INR 2.66 (0.83-1.09); PROTHROMBIN TIME (PATIENT) 31.3 SEC (9.7-13.0)
[2021-02-07] MEDS: METOPROLOL TARTRATE 5 MG/5 ML VIAL IVPB PRN ×2 (15:55→21:28)
[2021-02-08] MEDS ORDERED: hydrALAZINE HCL 20 MG/ML VIAL IVPUSH ONE (00:24)
[2021-02-08] MEDS ORDERED: ENALAPRILAT DIHYDRATE 1.25 MG/1 ML VIAL IVPB ONE (00:59)
[2021-02-08] MEDS ORDERED: DEXTROSE 5%-WATER - 50 ML IVPB ONE ×3 (01:47→17:42)
[2021-02-08] MEDS ORDERED: PIPERACILLIN/TAZOBACTAM 3.375 GM VIAL IVPB ONE ×3 (01:47→17:42)
[2021-02-08] MEDS: PIPERACILLIN/TAZOB 3.375 GM 3.375 GM in DEXTROSE 5%-WATER - 50 ML IVPB SCH ×3 (02:04→18:23)
[2021-02-08] MEDS: D5-NS + 20 MEQ KCL - 20 MEQ/1,000 ML INFUS.BAG IV SCH ×2 (03:27→12:22)
[2021-02-08 09:30] LABS: BASO % 0.3 % (0-2.0); HEMATOCRIT 37.6 % (35.4-49); HEMOGLOBIN 13.1 GM/dL (11.7-16.9); MCHC 34.9 g/dl (32.0-35.9); MEAN CELL VOLUME 85.8 fl (80-96); MEAN PLT VOLUME 8.2 fl (7.5-11.1); MONO % 7.3 % (3.8-10.2); NEUT % 85.4 % (42.8-82.8); PLATELET COUNT 169 K/MM3 (134-434); RBC 4.38 M/mm3 (4.00-5.60); RDW 13.7 % (11.9-15.9)
[2021-02-08] MEDS: PANTOPRAZOLE SODIUM 40 MG VIAL IVPUSH SCH (09:39)
[2021-02-08 10:02] LABS: CALCIUM 7.6 mg/dL (8.5-10.1)
[2021-02-08 10:03] LABS: ALBUMIN 2.6 g/dl (3.4-5.0); BLOOD UREA NITROGEN 12.4 mg/dL (7-18)
[2021-02-08 10:06] LABS: CREATININE 0.9 mg/dL (0.55-1.3)
[2021-02-08 10:07] LABS: BILIRUBIN,TOTAL 1.2 mg/dL (0.2-1); TOT PROT 5.8 g/dl (6.4-8.2)
[2021-02-08 10:45] LABS: INR 2.66 (0.83-1.09); PROTHROMBIN TIME (PATIENT) 31.8 SEC (9.7-13.0)
[2021-02-08] MEDS: METOPROLOL TARTRATE 5 MG/5 ML VIAL IVPB PRN ×3 (12:21→22:43)
[2021-02-08 18:35] LABS: INR 2.78 (0.83-1.09); PROTHROMBIN TIME (PATIENT) 33.2 SEC (9.7-13.0)
[2021-02-09] MEDS ORDERED: PIPERACILLIN/TAZOBACTAM 3.375 GM VIAL IVPB ONE ×3 (01:13→16:35)
[2021-02-09] MEDS ORDERED: DEXTROSE 5%-WATER - 50 ML IVPB ONE ×3 (01:13→16:35)
[2021-02-09] MEDS: PIPERACILLIN/TAZOB 3.375 GM 3.375 GM in DEXTROSE 5%-WATER - 50 ML IVPB SCH ×3 (01:49→17:02)
[2021-02-09] MEDS: D5-NS + 20 MEQ KCL - 20 MEQ/1,000 ML INFUS.BAG IV SCH (03:44)
[2021-02-09] MEDS: METOPROLOL TARTRATE 5 MG/5 ML VIAL IVPB PRN ×2 (05:08→09:25)
[2021-02-09 08:34] LABS: BASO % 0.2 % (0-2.0); EOS % 1.2 % (0-4.5); HEMATOCRIT 34.7 % (35.4-49); HEMOGLOBIN 12.2 GM/dL (11.7-16.9); LYMPH % 5.3 % (8-40); MCH 30.1 pg (25.7-33.7); MCHC 35.2 g/dl (32.0-35.9); MEAN CELL VOLUME 85.6 fl (80-96); MONO % 9.7 % (3.8-10.2); NEUT % 83.6 % (42.8-82.8); PLATELET COUNT 178 K/MM3 (134-434); RBC 4.06 M/mm3 (4.00-5.60); RDW 13.3 % (11.9-15.9); WHITE BLOOD COUNT 10.1 K/mm3 (4.0-10.0)
[2021-02-09 08:41] LABS: INR 3.02 (0.83-1.09); PROTHROMBIN TIME (PATIENT) 35.4 SEC (9.7-13.0)
[2021-02-09] MEDS: PANTOPRAZOLE SODIUM 40 MG VIAL IVPUSH SCH (09:20)
[2021-02-09] MEDS ORDERED: MULTIVIT INJ. ADULT COMBO WITH VIT K 1 COMBO 10 ML VIAL IV SCH (10:30)
[2021-02-09] MEDS ORDERED: AMINO ACIDS 4.25%/D5W 2,000 ML IV SCH (10:30)
[2021-02-09 10:42] LABS: ALBUMIN 2.5 g/dl (3.4-5.0); BLOOD UREA NITROGEN 12.7 mg/dL (7-18); CALCIUM 7.7 mg/dL (8.5-10.1)
[2021-02-09 10:47] LABS: BILIRUBIN,TOTAL 1.3 mg/dL (0.2-1); TOT PROT 5.6 g/dl (6.4-8.2)
[2021-02-09] MEDS: ENALAPRILAT DIHYDRATE 1.25 MG/1 ML VIAL IVPB SCH (12:42)
[2021-02-09] MEDS: ALBUTEROL SO4 2.5/IPRATROPIUM 0.5 INH SOL 3 ML VIAL.NEB. NEB SCH ×3 (12:50→20:50)
[2021-02-09] MEDS ORDERED: hydrALAZINE HCL 20 MG/ML VIAL IVPB ONE (14:30)
[2021-02-09] MEDS ORDERED: PT OWN MED DRAWER 7, Y5N ONE (14:51)
[2021-02-09] MEDS ORDERED: KCL 10 MEQ IVPB 10 MEQ/100 ML INFUS.BAG IVPB SCH (18:00)
[2021-02-09] MEDS ORDERED: FAT EMULSION/OLIVE/SOY/PHOSPHO 250 ML IV SCH (22:00)
[2021-02-09] MEDS ORDERED: FAT EMULSIONS 20% 250 ML PREMIX INFUS.BAG IV SCH (22:00)
[2021-02-10] MEDS ORDERED: PT OWN MED DRAWER 7, Y5N ONE ×2 (00:09→09:43)
[2021-02-10] MEDS: ENALAPRILAT DIHYDRATE 1.25 MG/1 ML VIAL IVPB SCH ×3 (00:14→22:20)
[2021-02-10] MEDS ORDERED: PIPERACILLIN/TAZOBACTAM 3.375 GM VIAL IVPB ONE ×3 (02:36→19:18)
[2021-02-10] MEDS ORDERED: DEXTROSE 5%-WATER - 50 ML IVPB ONE ×2 (02:36→09:44)
[2021-02-10] MEDS: PIPERACILLIN/TAZOB 3.375 GM 3.375 GM in DEXTROSE 5%-WATER - 50 ML IVPB SCH ×2 (03:45→09:48)
[2021-02-10] MEDS: ALBUTEROL SO4 2.5/IPRATROPIUM 0.5 INH SOL 3 ML VIAL.NEB. NEB SCH ×2 (08:30→11:53)
[2021-02-10 08:57] LABS: BASO % 0.1 % (0-2.0); HEMATOCRIT 34.7 % (35.4-49); HEMOGLOBIN 12.3 GM/dL (11.7-16.9); LYMPH % 4.2 % (8-40); MCH 30.3 pg (25.7-33.7); MCHC 35.5 g/dl (32.0-35.9); MEAN CELL VOLUME 85.3 fl (80-96); MONO % 10.9 % (3.8-10.2); NEUT % 83.8 % (42.8-82.8); PLATELET COUNT 181 K/MM3 (134-434); RBC 4.06 M/mm3 (4.00-5.60); RDW 13.3 % (11.9-15.9); WHITE BLOOD COUNT 12.2 K/mm3 (4.0-10.0)
[2021-02-10 09:02] LABS: INR 1.68 (0.83-1.09)
[2021-02-10 09:13] LABS: BLOOD UREA NITROGEN 12.5 mg/dL (7-18); CALCIUM 7.5 mg/dL (8.5-10.1)
[2021-02-10 09:15] LABS: CREATININE 0.9 mg/dL (0.55-1.3)
[2021-02-10 09:35] LABS: MAGNESIUM 1.4 mg/dL (1.8-2.4)
[2021-02-10 09:39] LABS: PHOSPHOROUS 2.6 mg/dL (2.5-4.9)
[2021-02-10] MEDS: PANTOPRAZOLE SODIUM 40 MG VIAL IVPUSH SCH (09:48)
[2021-02-10] MEDS ORDERED: ROCURONIUM BROMIDE 50 MG/5 ML SYRINGE ONE (11:03)
[2021-02-10] MEDS ORDERED: DEXAMETHASONE SOD PHOSPHATE 4 MG/1 ML VIAL ONE (11:03)
[2021-02-10] MEDS ORDERED: fentaNYL CITRATE 250 MCG/5 ML VIAL ONE (11:04)
[2021-02-10] MEDS ORDERED: MAGNESIUM SULF 50% (8.12 MEQ/2 ML-1 GM VIAL) IVPB ONE ×3 (12:17→14:01)
[2021-02-10] MEDS ORDERED: GLYCOPYRROLATE 0.2 MG/1 ML VIAL ONE ×2 (12:53→15:33)
[2021-02-10] MEDS ORDERED: NEOSTIGMINE METHYLSULFATE 0.5 MG/ML - 10 ML MDV ONE (12:53)
[2021-02-10] MEDS ORDERED: METOPROLOL TARTRATE 5 MG/5 ML VIAL ONE (12:57)
[2021-02-10] MEDS ORDERED: LABETALOL HCL 5 MG/1 ML (100MG/20 ML VIAL) ONE (13:13)
[2021-02-10] MEDS ORDERED: DIGOXIN 0.5 MG/2 ML AMPUL ONE (13:24)
[2021-02-10] MEDS ORDERED: PIPERACILLIN/TAZOB 3.375 GM 3.375 GM in DEXTROSE 5%-WATER - 50 ML IVPB SCH (13:41)
[2021-02-10] MEDS ORDERED: ACETAMINOPHEN 1000 MG/100 ML VIAL (NON FORMULARY) IVPB ONE (13:42)
[2021-02-10] MEDS ORDERED: LACTATED RINGERS SOLUTION 1,000 ML IV SCH ×3 (13:45→20:11)
[2021-02-10] MEDS ORDERED: ONDANSETRON 4 MG/2 ML VIAL IVPUSH PRN ×2 (14:01→20:11)
[2021-02-10] MEDS ORDERED: PROPOFOL 1,000,000 MCG/100 ML VIAL ONE ×2 (14:18→19:16)
[2021-02-10] MEDS: KCL 10 MEQ IVPB 10 MEQ/100 ML INFUS.BAG IVPB SCH ×5 (14:25→22:31)
[2021-02-10] MEDS ORDERED: ACETAMINOPHEN INJECTION 100 ML IVPB ONE (14:26)
[2021-02-10] MEDS ORDERED: PROPOFOL 1,000,000 MCG/100 ML VIAL IVPB SCH ×2 (14:30→20:11)
[2021-02-10] MEDS ORDERED: GLYCOPYRROLATE 0.2 MG/1 ML VIAL IVPB ONE (15:40)
[2021-02-10] MEDS ORDERED: ALBUTEROL SO4 2.5/IPRATROPIUM 0.5 INH SOL 3 ML VIAL.NEB. NEB SCH (16:00)
[2021-02-10] MEDS ORDERED: MAGNESIUM 1GM/D5W 100ML - 100 ML IVPB IVPB ONE (16:00)
[2021-02-10] MEDS ORDERED: GLYCOPYRROLATE 0.2 MG/1 ML VIAL IM PRN ×2 (16:22→20:11)
[2021-02-10] MEDS ORDERED: hydrALAZINE HCL 20 MG/ML VIAL IVPUSH ONE ×3 (17:16→20:11)
[2021-02-10 18:31] LABS: CALCIUM 7.2 mg/dL (8.5-10.1)
[2021-02-10 18:32] LABS: BLOOD UREA NITROGEN 13.5 mg/dL (7-18)
[2021-02-10] MEDS ORDERED: KCL 10 MEQ IVPB 10 MEQ/100 ML INFUS.BAG IVPB SCH (19:15)
[2021-02-10] MEDS ORDERED: MORPHINE SULFATE 2 MG/ML VIAL IVPUSH PRN (19:20)
[2021-02-10] MEDS ORDERED: METOPROLOL TARTRATE 5 MG/5 ML VIAL IVPB SCH (19:45)
[2021-02-10] MEDS: METOPROLOL TARTRATE 5 MG/5 ML VIAL IVPB SCH (21:00)
[2021-02-10] MEDS ORDERED: MUPIROCIN 2% TOPICAL OINTMENT FOR DECOLONIZATION NS SCH ×2 (22:00)
[2021-02-10] MEDS ORDERED: ENALAPRILAT DIHYDRATE 1.25 MG/1 ML VIAL IVPB SCH (22:00)
[2021-02-10] MEDS ORDERED: CHLORHEXIDINE GLUCONATE 4% CLEANSER FOR DECOLONIZATION TP SCH (22:00)
[2021-02-10] MEDS ORDERED: FAT EMULSION/OLIVE/SOY/PHOSPHO 250 ML IV SCH (22:00)
[2021-02-10] MEDS: MUPIROCIN 2% TOPICAL OINTMENT FOR DECOLONIZATION NS SCH (22:19)
[2021-02-10] MEDS: CHLORHEXIDINE GLUCONATE 4% CLEANSER FOR DECOLONIZATION TP SCH (22:20)
[2021-02-11] MEDS ORDERED: DEXTROSE 5%-WATER - 50 ML IVPB ONE ×3 (01:38→17:55)
[2021-02-11] MEDS ORDERED: PIPERACILLIN/TAZOBACTAM 3.375 GM VIAL IVPB ONE ×3 (01:38→17:55)
[2021-02-11] MEDS ORDERED: hydrALAZINE HCL 20 MG/ML VIAL IVPUSH ONE (01:46)
[2021-02-11] MEDS: PIPERACILLIN/TAZOB 3.375 GM 3.375 GM in DEXTROSE 5%-WATER - 50 ML IVPB SCH ×3 (02:13→17:56)
[2021-02-11] MEDS: METOPROLOL TARTRATE 5 MG/5 ML VIAL IVPB SCH ×4 (03:00→22:50)
[2021-02-11] MEDS: MORPHINE SULFATE 2 MG/ML VIAL IVPUSH PRN ×2 (05:56→22:00)
[2021-02-11 07:02] LABS: BASO % 0.1 % (0-2.0); EOS % 3.3 % (0-4.5); HEMATOCRIT 35.7 % (35.4-49); HEMOGLOBIN 12.3 GM/dL (11.7-16.9); LYMPH % 3.2 % (8-40); MCH 29.7 pg (25.7-33.7); MCHC 34.5 g/dl (32.0-35.9); MEAN CELL VOLUME 86.1 fl (80-96); MEAN PLT VOLUME 8.2 fl (7.5-11.1); MONO % 6.1 % (3.8-10.2); NEUT % 87.3 % (42.8-82.8); PLATELET COUNT 181 K/MM3 (134-434); RBC 4.15 M/mm3 (4.00-5.60); WHITE BLOOD COUNT 11.4 K/mm3 (4.0-10.0)
[2021-02-11 07:16] LABS: INR 1.38 (0.83-1.09); PROTHROMBIN TIME (PATIENT) 16.8 SEC (9.7-13.0)
[2021-02-11 07:18] LABS: CALCIUM 7.4 mg/dL (8.5-10.1)
[2021-02-11 07:19] LABS: BLOOD UREA NITROGEN 13.7 mg/dL (7-18); MAGNESIUM 1.7 mg/dL (1.8-2.4)
[2021-02-11 07:22] LABS: CREATININE 1.1 mg/dL (0.55-1.3); PHOSPHOROUS 2.4 mg/dL (2.5-4.9)
[2021-02-11] MEDS: ALBUTEROL SO4 2.5/IPRATROPIUM 0.5 INH SOL 3 ML VIAL.NEB. NEB SCH ×4 (08:25→20:26)
[2021-02-11] MEDS: KCL 10 MEQ IVPB 10 MEQ/100 ML INFUS.BAG IVPB SCH ×2 (08:56→10:10)
[2021-02-11 09:25] LABS: ALBUMIN 2.1 g/dl (3.4-5.0)
[2021-02-11] MEDS ORDERED: AMINO ACIDS 4.25%/D5W 2,000 ML IV SCH (10:00)
[2021-02-11] MEDS ORDERED: MULTIVIT INJ. ADULT COMBO WITH VIT K 1 COMBO 10 ML VIAL IV SCH ×2 (10:00)
[2021-02-11] MEDS ORDERED: PANTOPRAZOLE SODIUM 40 MG VIAL IVPUSH SCH (10:00)
[2021-02-11] MEDS: MUPIROCIN 2% TOPICAL OINTMENT FOR DECOLONIZATION NS SCH ×2 (10:07→22:49)
[2021-02-11] MEDS: PANTOPRAZOLE SODIUM 40 MG VIAL IVPUSH SCH (10:07)
[2021-02-11] MEDS: ENALAPRILAT DIHYDRATE 1.25 MG/1 ML VIAL IVPB SCH ×3 (10:08→22:49)
[2021-02-11] MEDS: hydrALAZINE HCL 20 MG/ML VIAL IVPUSH PRN (13:15)
[2021-02-11] MEDS ORDERED: HEPARIN NA (PORCINE) 5,000 UNITS/ML 1ML VIAL IVPUSH PRN ×2 (14:53)
[2021-02-11] MEDS ORDERED: HEPARIN - 25,000 UNIT in SODIUM CHLORIDE 495 ML IV SCH (15:00)
[2021-02-11] MEDS ORDERED: SODIUM PHOSPHATE - 15 MM in SODIUM CHLORIDE 250 ML IVPB ONE (15:12)
[2021-02-11] MEDS ORDERED: MAGNESIUM SULF 50% (8.12 MEQ/2 ML-1 GM VIAL) IVPB ONE (15:12)
[2021-02-11] MEDS: AMINO ACIDS 4.25%/D5W 2,000 ML IV SCH (16:23)
[2021-02-11] MEDS: MULTIVIT INJ. ADULT COMBO WITH VIT K 1 COMBO 10 ML VIAL IV SCH (16:24)
[2021-02-11] MEDS ORDERED: LABETALOL HCL 5 MG/1 ML (100MG/20 ML VIAL) IVPUSH ONE (17:13)
[2021-02-11] MEDS ORDERED: RACEPINEPHRINE IH SOL 2.25% 11.25 MG/0.5 ML VIAL IH ONE ×2 (17:23→20:46)
[2021-02-11] MEDS ORDERED: DEXAMETHASONE SOD PHOSPHATE 10 MG/1 ML VIAL IVPUSH ONE (21:29)
[2021-02-11] MEDS ORDERED: methylPREDNISolone NA SUCC 125 MG/2 ML VIAL IVPUSH ONE (22:25)
[2021-02-11] MEDS: CHLORHEXIDINE GLUCONATE 4% CLEANSER FOR DECOLONIZATION TP SCH (22:49)
[2021-02-12] MEDS: FAT EMULSION/OLIVE/SOY (CLINOLIPID) 250 ML EMULSION IV SCH ×2 (01:12→21:47)
[2021-02-12] MEDS ORDERED: DEXTROSE 5%-WATER - 50 ML IVPB ONE ×3 (01:35→17:15)
[2021-02-12] MEDS ORDERED: PIPERACILLIN/TAZOBACTAM 3.375 GM VIAL IVPB ONE ×3 (01:35→17:15)
[2021-02-12] MEDS: PIPERACILLIN/TAZOB 3.375 GM 3.375 GM in DEXTROSE 5%-WATER - 50 ML IVPB SCH ×3 (01:46→17:54)
[2021-02-12] MEDS: METOPROLOL TARTRATE 5 MG/5 ML VIAL IVPB SCH ×3 (02:05→15:00)
[2021-02-12] MEDS: ENALAPRILAT DIHYDRATE 1.25 MG/1 ML VIAL IVPB SCH ×4 (02:05→21:47)
[2021-02-12] MEDS ORDERED: ALBUTEROL SO4 2.5/IPRATROPIUM 0.5 INH SOL 3 ML VIAL.NEB. NEB ONE (02:39)
[2021-02-12 03:11] LABS: ALLENS TEST POSITIVE; ARTERIAL BLD GAS O2 SATURATION 99.3 mmHg (95-98); ARTERIAL BLOOD GAS BASE EXCESS -3.3 mmol/L (-2-2); ARTERIAL BLOOD GAS PO2 187.5 mmHg (80-100); ARTERIAL BLOOD GAS pH 7.366 (7.350-7.450); VENT RATE 20
[2021-02-12] MEDS: DEXAMETHASONE SOD PHOSPHATE 10 MG/1 ML VIAL IVPUSH SCH ×3 (03:26→17:55)
[2021-02-12 06:48] LABS: HEMATOCRIT 38.6 % (35.4-49); HEMOGLOBIN 13.5 GM/dL (11.7-16.9); MCH 30.9 pg (25.7-33.7); MCHC 35.1 g/dl (32.0-35.9); MEAN CELL VOLUME 88.1 fl (80-96); MEAN PLT VOLUME 8.3 fl (7.5-11.1); PLATELET COUNT 176 K/MM3 (134-434); RBC 4.38 M/mm3 (4.00-5.60); WHITE BLOOD COUNT 9.3 K/mm3 (4.0-10.0)
[2021-02-12 06:58] LABS: INR 3.55 (0.83-1.09); PROTHROMBIN TIME (PATIENT) 41.4 SEC (9.7-13.0)
[2021-02-12 06:59] LABS: ACTIVATED PTT 20.3 SECONDS (25.2-36.5)
[2021-02-12 07:00] LABS: ALBUMIN 1.9 g/dl (3.4-5.0); BLOOD UREA NITROGEN 20.7 mg/dL (7-18); CALCIUM 7.4 mg/dL (8.5-10.1); MAGNESIUM 1.9 mg/dL (1.8-2.4)
[2021-02-12 07:03] LABS: CREATININE 1.2 mg/dL (0.55-1.3)
[2021-02-12 07:05] LABS: TOT PROT 5.2 g/dl (6.4-8.2)
[2021-02-12] MEDS: hydrALAZINE HCL 20 MG/ML VIAL IVPUSH PRN ×2 (07:33→13:49)
[2021-02-12] MEDS: ALBUTEROL SO4 2.5/IPRATROPIUM 0.5 INH SOL 3 ML VIAL.NEB. NEB SCH ×4 (07:45→21:00)
[2021-02-12] MEDS: PANTOPRAZOLE SODIUM 40 MG VIAL IVPUSH SCH (10:12)
[2021-02-12] MEDS: MUPIROCIN 2% TOPICAL OINTMENT FOR DECOLONIZATION NS SCH ×2 (10:12→21:47)
[2021-02-12] MEDS: INSULIN SLIDING SCALE (NOVOLOG) 1 VIAL SQ SCH ×3 (13:00→23:00)
[2021-02-12] MEDS: ENOXAPARIN NA (PORCINE) 100 MG/1 ML DISP.SYRIN SQ SCH ×2 (14:30→21:47)
[2021-02-12] MEDS: AMINO ACIDS 4.25%/D5W 2,000 ML IV SCH (17:54)
[2021-02-12] MEDS: MULTIVIT INJ. ADULT COMBO WITH VIT K 1 COMBO 10 ML VIAL IV SCH (17:56)
[2021-02-12] MEDS: CHLORHEXIDINE GLUCONATE 4% CLEANSER FOR DECOLONIZATION TP SCH (21:47)
[2021-02-13] MEDS: PIPERACILLIN/TAZOB 3.375 GM 3.375 GM in DEXTROSE 5%-WATER - 50 ML IVPB SCH ×3 (03:00→17:53)
[2021-02-13] MEDS: DEXAMETHASONE SOD PHOSPHATE 10 MG/1 ML VIAL IVPUSH SCH ×3 (04:00→17:53)
[2021-02-13] MEDS ORDERED: PIPERACILLIN/TAZOBACTAM 3.375 GM VIAL IVPB ONE ×4 (05:28→21:33)
[2021-02-13] MEDS ORDERED: DEXTROSE 5%-WATER - 50 ML IVPB ONE ×4 (05:28→21:33)
[2021-02-13] MEDS: ENALAPRILAT DIHYDRATE 1.25 MG/1 ML VIAL IVPB SCH ×4 (06:22→21:56)
[2021-02-13 07:01] LABS: BASO % 0.4 % (0-2.0); HEMATOCRIT 32.2 % (35.4-49); HEMOGLOBIN 11.1 GM/dL (11.7-16.9); LYMPH % 3.2 % (8-40); MCH 29.9 pg (25.7-33.7); MCHC 34.4 g/dl (32.0-35.9); MEAN CELL VOLUME 86.8 fl (80-96); MEAN PLT VOLUME 7.8 fl (7.5-11.1); MONO % 5.4 % (3.8-10.2); PLATELET COUNT 231 K/MM3 (134-434); RBC 3.71 M/mm3 (4.00-5.60); RDW 13.5 % (11.9-15.9); WHITE BLOOD COUNT 11.5 K/mm3 (4.0-10.0)
[2021-02-13] MEDS: INSULIN SLIDING SCALE (NOVOLOG) 1 VIAL SQ SCH ×4 (07:16→22:19)
[2021-02-13 07:26] LABS: CALCIUM 7.7 mg/dL (8.5-10.1)
[2021-02-13 07:27] LABS: BLOOD UREA NITROGEN 29.2 mg/dL (7-18); MAGNESIUM 1.9 mg/dL (1.8-2.4)
[2021-02-13 07:30] LABS: CREATININE 1.2 mg/dL (0.55-1.3); PHOSPHOROUS 1.8 mg/dL (2.5-4.9)
[2021-02-13 07:31] LABS: BILIRUBIN,TOTAL 0.9 mg/dL (0.2-1); TOT PROT 5.1 g/dl (6.4-8.2)
[2021-02-13] MEDS: ALBUTEROL SO4 2.5/IPRATROPIUM 0.5 INH SOL 3 ML VIAL.NEB. NEB SCH ×4 (08:04→20:00)
[2021-02-13] MEDS: KCL 10 MEQ IVPB 10 MEQ/100 ML INFUS.BAG IVPB SCH ×3 (09:00→12:14)
[2021-02-13] MEDS: ENOXAPARIN NA (PORCINE) 100 MG/1 ML DISP.SYRIN SQ SCH ×2 (09:21→21:57)
[2021-02-13] MEDS: PANTOPRAZOLE SODIUM 40 MG VIAL IVPUSH SCH (09:23)
[2021-02-13 10:13] LABS: ANISOCYTOSIS 0; MACROCYTOSIS 0; PLATELET ESTIMATE NORMAL
[2021-02-13] MEDS ORDERED: POTASSIUM PHOSPHATE 30 MM in SODIUM CHLORIDE 250 ML IVPB ONE (11:00)
[2021-02-13 11:10] LABS: INR 1.2 (0.83-1.09); PROTHROMBIN TIME (PATIENT) 14.4 SEC (9.7-13.0)
[2021-02-13] MEDS ORDERED: MAGNESIUM SULF 50% (8.12 MEQ/2 ML-1 GM VIAL) IVPB ONE (11:22)
[2021-02-13] MEDS ORDERED: PT OWN MED DRAWER 7, Y5N ONE ×2 (12:11→17:40)
[2021-02-13] MEDS: MUPIROCIN 2% TOPICAL OINTMENT FOR DECOLONIZATION NS SCH ×2 (12:14→21:56)
[2021-02-13 15:31] VITALS: BMI 27.3
[2021-02-13] MEDS: POTASSIUM CHLORIDE 20 MEQ in AMINO ACIDS 4.25%/D5W 2,000 ML IV SCH (17:53)
[2021-02-13 18:17] LABS: BLOOD UREA NITROGEN 35.2 mg/dL (7-18); CALCIUM 7.8 mg/dL (8.5-10.1)
[2021-02-13 18:20] LABS: CREATININE 1.1 mg/dL (0.55-1.3)
[2021-02-13 18:21] LABS: PHOSPHOROUS 2.7 mg/dL (2.5-4.9)
[2021-02-13] MEDS: FAT EMULSION/OLIVE/SOY (CLINOLIPID) 250 ML EMULSION IV SCH (21:56)
[2021-02-13] MEDS: MULTIVIT INJ. ADULT COMBO WITH VIT K 1 COMBO 10 ML VIAL IV SCH (21:56)
[2021-02-13] MEDS: CHLORHEXIDINE GLUCONATE 4% CLEANSER FOR DECOLONIZATION TP SCH (21:57)
[2021-02-13] MEDS: MORPHINE SULFATE 2 MG/ML VIAL IVPUSH PRN (21:58)
[2021-02-14] MEDS: PIPERACILLIN/TAZOB 3.375 GM 3.375 GM in DEXTROSE 5%-WATER - 50 ML IVPB SCH ×3 (02:00→17:23)
[2021-02-14] MEDS: ENALAPRILAT DIHYDRATE 1.25 MG/1 ML VIAL IVPB SCH ×4 (03:00→20:52)
[2021-02-14] MEDS: INSULIN (LEVEMIR) 100 UNITS/ML UNITS SQ SCH (06:44)
[2021-02-14] MEDS: INSULIN SLIDING SCALE (NOVOLOG) 1 VIAL SQ SCH ×4 (06:45→22:24)
[2021-02-14 06:59] LABS: BASO % 0.2 % (0-2.0); HEMATOCRIT 32.1 % (35.4-49); HEMOGLOBIN 11.2 GM/dL (11.7-16.9); LYMPH % 5.1 % (8-40); MCH 30.1 pg (25.7-33.7); MCHC 34.8 g/dl (32.0-35.9); MEAN CELL VOLUME 86.4 fl (80-96); MEAN PLT VOLUME 7.9 fl (7.5-11.1); NEUT % 86.7 % (42.8-82.8); PLATELET COUNT 228 K/MM3 (134-434); RBC 3.71 M/mm3 (4.00-5.60); RDW 13.5 % (11.9-15.9); WHITE BLOOD COUNT 9.8 K/mm3 (4.0-10.0)
[2021-02-14 07:18] LABS: CALCIUM 7.4 mg/dL (8.5-10.1)
[2021-02-14 07:19] LABS: BLOOD UREA NITROGEN 41.4 mg/dL (7-18)
[2021-02-14 07:22] LABS: BILIRUBIN,TOTAL 0.8 mg/dL (0.2-1); CREATININE 1.2 mg/dL (0.55-1.3); PHOSPHOROUS 2.9 mg/dL (2.5-4.9)
[2021-02-14 07:24] LABS: TOT PROT 4.8 g/dl (6.4-8.2)
[2021-02-14] MEDS: ALBUTEROL SO4 2.5/IPRATROPIUM 0.5 INH SOL 3 ML VIAL.NEB. NEB SCH ×4 (08:45→20:50)
[2021-02-14] MEDS ORDERED: PIPERACILLIN/TAZOBACTAM 3.375 GM VIAL IVPB ONE ×2 (09:25→17:19)
[2021-02-14] MEDS ORDERED: DEXTROSE 5%-WATER - 50 ML IVPB ONE ×2 (09:25→17:19)
[2021-02-14] MEDS: PANTOPRAZOLE SODIUM 40 MG VIAL IVPUSH SCH (09:26)
[2021-02-14] MEDS: MUPIROCIN 2% TOPICAL OINTMENT FOR DECOLONIZATION NS SCH ×2 (09:29→21:30)
[2021-02-14] MEDS: ENOXAPARIN NA (PORCINE) 100 MG/1 ML DISP.SYRIN SQ SCH ×2 (09:29→21:30)
[2021-02-14 10:32] LABS: INR 1.13 (0.83-1.09); PROTHROMBIN TIME (PATIENT) 13.9 SEC (9.7-13.0)
[2021-02-14] MEDS: POTASSIUM CHLORIDE 20 MEQ in AMINO ACIDS 4.25%/D5W 2,000 ML IV SCH (16:41)
[2021-02-14] MEDS: MULTIVIT INJ. ADULT COMBO WITH VIT K 1 COMBO 10 ML VIAL IV SCH (16:41)
[2021-02-14] MEDS: FAT EMULSION/OLIVE/SOY (CLINOLIPID) 250 ML EMULSION IV SCH (21:30)
[2021-02-14] MEDS: CHLORHEXIDINE GLUCONATE 4% CLEANSER FOR DECOLONIZATION TP SCH (21:31)
[2021-02-15] MEDS ORDERED: PIPERACILLIN/TAZOBACTAM 3.375 GM VIAL IVPB ONE ×3 (00:52→17:12)
[2021-02-15] MEDS ORDERED: DEXTROSE 5%-WATER - 50 ML IVPB ONE ×3 (00:52→17:12)
[2021-02-15] MEDS: PIPERACILLIN/TAZOB 3.375 GM 3.375 GM in DEXTROSE 5%-WATER - 50 ML IVPB SCH ×3 (02:06→17:14)
[2021-02-15] MEDS: ENALAPRILAT DIHYDRATE 1.25 MG/1 ML VIAL IVPB SCH ×4 (03:02→21:19)
[2021-02-15] MEDS: INSULIN (LEVEMIR) 100 UNITS/ML UNITS SQ SCH (06:00)
[2021-02-15] MEDS: INSULIN SLIDING SCALE (NOVOLOG) 1 VIAL SQ SCH ×4 (06:00→22:24)
[2021-02-15 07:04] LABS: HEMATOCRIT 37.4 % (35.4-49); HEMOGLOBIN 13.2 GM/dL (11.7-16.9); MCH 30.2 pg (25.7-33.7); MCHC 35.2 g/dl (32.0-35.9); MEAN CELL VOLUME 85.7 fl (80-96); MEAN PLT VOLUME 8.8 fl (7.5-11.1); PLATELET COUNT 214 K/MM3 (134-434); RBC 4.37 M/mm3 (4.00-5.60); RDW 13.4 % (11.9-15.9); WHITE BLOOD COUNT 10.1 K/mm3 (4.0-10.0)
[2021-02-15 07:21] LABS: ALBUMIN 2.3 g/dl (3.4-5.0)
[2021-02-15 07:22] LABS: BLOOD UREA NITROGEN 38.3 mg/dL (7-18)
[2021-02-15 07:23] LABS: CALCIUM 7.4 mg/dL (8.5-10.1); TOT PROT 5.7 g/dl (6.4-8.2)
[2021-02-15 07:24] LABS: MAGNESIUM 1.8 mg/dL (1.8-2.4)
[2021-02-15 07:25] LABS: CREATININE 1.1 mg/dL (0.55-1.3); PHOSPHOROUS 2.4 mg/dL (2.5-4.9)
[2021-02-15] MEDS: ALBUTEROL SO4 2.5/IPRATROPIUM 0.5 INH SOL 3 ML VIAL.NEB. NEB SCH ×4 (08:17→20:40)
[2021-02-15] MEDS: MUPIROCIN 2% TOPICAL OINTMENT FOR DECOLONIZATION NS SCH (09:21)
[2021-02-15] MEDS: ENOXAPARIN NA (PORCINE) 100 MG/1 ML DISP.SYRIN SQ SCH ×2 (09:21→21:19)
[2021-02-15] MEDS: PANTOPRAZOLE SODIUM 40 MG VIAL IVPUSH SCH (09:44)
[2021-02-15] MEDS ORDERED: POTASSIUM PHOSPHATE 15 MM in DEXTROSE 5%-WATER - 250 ML IVPB ONE (10:30)
[2021-02-15] MEDS ORDERED: PT OWN MED DRAWER 7, Y5N ONE (15:55)
[2021-02-15] MEDS: POTASSIUM CHLORIDE 20 MEQ in AMINO ACIDS 4.25%/D5W 2,000 ML IV SCH (17:09)
[2021-02-15] MEDS: MULTIVIT INJ. ADULT COMBO WITH VIT K 1 COMBO 10 ML VIAL IV SCH (17:10)
[2021-02-15] MEDS: CHLORHEXIDINE GLUCONATE 4% CLEANSER FOR DECOLONIZATION TP SCH (21:19)
[2021-02-15] MEDS: FAT EMULSION/OLIVE/SOY (CLINOLIPID) 250 ML EMULSION IV SCH (22:20)
[2021-02-16] MEDS ORDERED: DEXTROSE 5%-WATER - 50 ML IVPB ONE ×3 (00:51→17:12)
[2021-02-16] MEDS ORDERED: PIPERACILLIN/TAZOBACTAM 3.375 GM VIAL IVPB ONE ×3 (00:51→17:12)
[2021-02-16] MEDS: PIPERACILLIN/TAZOB 3.375 GM 3.375 GM in DEXTROSE 5%-WATER - 50 ML IVPB SCH ×3 (01:07→17:19)
[2021-02-16] MEDS: ENALAPRILAT DIHYDRATE 1.25 MG/1 ML VIAL IVPB SCH ×4 (02:33→21:34)
[2021-02-16] MEDS: INSULIN (LEVEMIR) 100 UNITS/ML UNITS SQ SCH (06:54)
[2021-02-16] MEDS: INSULIN SLIDING SCALE (NOVOLOG) 1 VIAL SQ SCH ×4 (06:54→21:41)
[2021-02-16 06:58] LABS: HEMATOCRIT 34.5 % (35.4-49); HEMOGLOBIN 12.1 GM/dL (11.7-16.9); MCH 30.3 pg (25.7-33.7); MCHC 35.1 g/dl (32.0-35.9); MEAN CELL VOLUME 86.2 fl (80-96); MEAN PLT VOLUME 9.2 fl (7.5-11.1); PLATELET COUNT 148 K/MM3 (134-434); RDW 13.5 % (11.9-15.9)
[2021-02-16 07:19] LABS: ALBUMIN 2.3 g/dl (3.4-5.0); CALCIUM 7.3 mg/dL (8.5-10.1); MAGNESIUM 1.6 mg/dL (1.8-2.4)
[2021-02-16 07:20] LABS: BLOOD UREA NITROGEN 30.2 mg/dL (7-18)
[2021-02-16 07:22] LABS: CREATININE 1.1 mg/dL (0.55-1.3)
[2021-02-16 07:23] LABS: PHOSPHOROUS 2.7 mg/dL (2.5-4.9)
[2021-02-16 07:24] LABS: BILIRUBIN,TOTAL 0.8 mg/dL (0.2-1); TOT PROT 5.6 g/dl (6.4-8.2)
[2021-02-16] MEDS: ALBUTEROL SO4 2.5/IPRATROPIUM 0.5 INH SOL 3 ML VIAL.NEB. NEB SCH ×4 (08:30→20:01)
[2021-02-16] MEDS ORDERED: MAGNESIUM SULF 50% (8.12 MEQ/2 ML-1 GM VIAL) IVPB ONE (09:01)
[2021-02-16] MEDS: ENOXAPARIN NA (PORCINE) 100 MG/1 ML DISP.SYRIN SQ SCH ×2 (09:19→21:33)
[2021-02-16] MEDS: PANTOPRAZOLE SODIUM 40 MG VIAL IVPUSH SCH (09:20)
[2021-02-16] MEDS: KCL 10 MEQ IVPB 10 MEQ/100 ML INFUS.BAG IVPB SCH ×4 (09:31→18:23)
[2021-02-16] MEDS ORDERED: ONDANSETRON 4 MG/2 ML VIAL IVPUSH PRN (14:06)
[2021-02-16] MEDS ORDERED: hydrALAZINE HCL 20 MG/ML VIAL IVPUSH ONE (14:06)
[2021-02-16] MEDS ORDERED: MORPHINE SULFATE 2 MG/ML VIAL IVPUSH PRN (14:06)
[2021-02-16] MEDS ORDERED: hydrALAZINE HCL 20 MG/ML VIAL IVPUSH PRN (14:06)
[2021-02-16] MEDS: POTASSIUM CHLORIDE 20 MEQ in AMINO ACIDS 4.25%/D5W 2,000 ML IV SCH ×2 (15:31→18:38)
[2021-02-16] MEDS: MULTIVIT INJ. ADULT COMBO WITH VIT K 1 COMBO 10 ML VIAL IV SCH (18:38)
[2021-02-16] MEDS: FAT EMUL/SOY/MCT/OLIV/FISH OIL 250 ML IV SCH (21:37)
[2021-02-16] MEDS ORDERED: FAT EMULSION/OLIVE/SOY (CLINOLIPID) 250 ML EMULSION IV SCH (22:00)
[2021-02-16] MEDS ORDERED: FAT EMULSION/OLIVE/SOY/PHOSPHO 250 ML IV SCH (22:00)
[2021-02-16] MEDS ORDERED: CHLORHEXIDINE GLUCONATE 4% CLEANSER FOR DECOLONIZATION TP SCH (22:00)
[2021-02-17] MEDS ORDERED: PIPERACILLIN/TAZOBACTAM 3.375 GM VIAL IVPB ONE ×3 (01:05→16:57)
[2021-02-17] MEDS ORDERED: DEXTROSE 5%-WATER - 50 ML IVPB ONE ×3 (01:05→16:57)
[2021-02-17] MEDS: PIPERACILLIN/TAZOB 3.375 GM 3.375 GM in DEXTROSE 5%-WATER - 50 ML IVPB SCH ×3 (01:25→17:04)
[2021-02-17] MEDS: ENALAPRILAT DIHYDRATE 1.25 MG/1 ML VIAL IVPB SCH ×4 (02:21→22:37)
[2021-02-17] MEDS: INSULIN SLIDING SCALE (NOVOLOG) 1 VIAL SQ SCH ×4 (06:54→22:53)
[2021-02-17] MEDS: INSULIN (LEVEMIR) 100 UNITS/ML UNITS SQ SCH (06:54)
[2021-02-17 07:00] LABS: ALBUMIN 1.9 g/dl (3.4-5.0); BLOOD UREA NITROGEN 24.7 mg/dL (7-18)
[2021-02-17 07:03] LABS: CREATININE 1.2 mg/dL (0.55-1.3)
[2021-02-17 07:04] LABS: BILIRUBIN,TOTAL 0.6 mg/dL (0.2-1); TOT PROT 4.8 g/dl (6.4-8.2)
[2021-02-17 07:08] LABS: BASO % 0.4 % (0-2.0); EOS % 3.2 % (0-4.5); HEMATOCRIT 29.9 % (35.4-49); HEMOGLOBIN 10.6 GM/dL (11.7-16.9); LYMPH % 6.1 % (8-40); MCH 30.6 pg (25.7-33.7); MCHC 35.5 g/dl (32.0-35.9); MEAN CELL VOLUME 86.3 fl (80-96); MEAN PLT VOLUME 8.9 fl (7.5-11.1); MONO % 5.3 % (3.8-10.2); PLATELET COUNT 117 K/MM3 (134-434); RBC 3.47 M/mm3 (4.00-5.60); RDW 13.7 % (11.9-15.9); WHITE BLOOD COUNT 8.7 K/mm3 (4.0-10.0)
[2021-02-17] MEDS: ALBUTEROL SO4 2.5/IPRATROPIUM 0.5 INH SOL 3 ML VIAL.NEB. NEB SCH ×4 (09:00→20:20)
[2021-02-17] MEDS: PANTOPRAZOLE SODIUM 40 MG VIAL IVPUSH SCH (09:50)
[2021-02-17] MEDS: ENOXAPARIN NA (PORCINE) 100 MG/1 ML DISP.SYRIN SQ SCH ×2 (09:50→22:37)
[2021-02-17] MEDS: KCL 10 MEQ IVPB 10 MEQ/100 ML INFUS.BAG IVPB SCH ×2 (10:58→12:21)
[2021-02-17] MEDS ORDERED: POTASSIUM CHLORIDE 20 MEQ in AMINO ACIDS 4.25%/D5W 2,000 ML IV SCH (11:31)
[2021-02-17] MEDS: MULTIVIT INJ. ADULT COMBO WITH VIT K 1 COMBO 10 ML VIAL IV SCH (16:46)
[2021-02-17] MEDS: POTASSIUM CHLORIDE 20 MEQ in AMINO ACIDS 4.25%/D5W 2,000 ML IV SCH (17:32)
[2021-02-17] MEDS ORDERED: PT OWN MED DRAWER 7, Y5N ONE (22:25)
[2021-02-17] MEDS: FAT EMUL/SOY/MCT/OLIV/FISH OIL 250 ML IV SCH (22:38)
[2021-02-18] MEDS ORDERED: PIPERACILLIN/TAZOBACTAM 3.375 GM VIAL IVPB ONE ×3 (02:21→17:23)
[2021-02-18] MEDS ORDERED: DEXTROSE 5%-WATER - 50 ML IVPB ONE ×3 (02:21→17:24)
[2021-02-18] MEDS: ENALAPRILAT DIHYDRATE 1.25 MG/1 ML VIAL IVPB SCH ×2 (02:45→09:06)
[2021-02-18] MEDS: PIPERACILLIN/TAZOB 3.375 GM 3.375 GM in DEXTROSE 5%-WATER - 50 ML IVPB SCH ×3 (02:50→17:28)
[2021-02-18] MEDS: POTASSIUM CHLORIDE 20 MEQ in AMINO ACIDS 4.25%/D5W 2,000 ML IV SCH (03:01)
[2021-02-18] MEDS: INSULIN (LEVEMIR) 100 UNITS/ML UNITS SQ SCH (06:21)
[2021-02-18] MEDS: INSULIN SLIDING SCALE (NOVOLOG) 1 VIAL SQ SCH ×4 (06:35→21:39)
[2021-02-18 06:43] LABS: BASO % 0.6 % (0-2.0); EOS % 1.7 % (0-4.5); HEMOGLOBIN 10.2 GM/dL (11.7-16.9); LYMPH % 5.8 % (8-40); MCH 30.3 pg (25.7-33.7); MCHC 35.3 g/dl (32.0-35.9); MEAN PLT VOLUME 8.7 fl (7.5-11.1); MONO % 6.4 % (3.8-10.2); NEUT % 85.5 % (42.8-82.8); PLATELET COUNT 141 K/MM3 (134-434); RBC 3.37 M/mm3 (4.00-5.60); RDW 13.9 % (11.9-15.9); WHITE BLOOD COUNT 7.8 K/mm3 (4.0-10.0)
[2021-02-18] MEDS ORDERED: INSULIN SLIDING SCALE (NOVOLOG) 1 VIAL SQ ONE (06:46)
[2021-02-18 07:40] LABS: BLOOD UREA NITROGEN 21.3 mg/dL (7-18)
[2021-02-18 07:41] LABS: MAGNESIUM 1.5 mg/dL (1.8-2.4)
[2021-02-18 07:43] LABS: CREATININE 1.1 mg/dL (0.55-1.3)
[2021-02-18 07:45] LABS: BILIRUBIN,TOTAL 0.6 mg/dL (0.2-1)
[2021-02-18] MEDS: ALBUTEROL SO4 2.5/IPRATROPIUM 0.5 INH SOL 3 ML VIAL.NEB. NEB SCH ×4 (07:45→20:36)
[2021-02-18] MEDS: PANTOPRAZOLE SODIUM 40 MG VIAL IVPUSH SCH (09:06)
[2021-02-18] MEDS: ENOXAPARIN NA (PORCINE) 100 MG/1 ML DISP.SYRIN SQ SCH (09:06)
[2021-02-18] MEDS ORDERED: ACETAMINOPHEN 325 MG TABLET (FP) PO PRN (11:42)
[2021-02-18] MEDS: TAMSULOSIN HCL 0.4 MG CAP PO SCH (12:38)
[2021-02-18] MEDS: LISINOPRIL 5 MG TABLET PO SCH (12:38)
[2021-02-18] MEDS: APIXABAN 5 MG TABLET PO SCH ×2 (12:38→21:39)
[2021-02-18] MEDS: MULTIVIT INJ. ADULT COMBO WITH VIT K 1 COMBO 10 ML VIAL IV SCH (17:00)
[2021-02-19] MEDS ORDERED: DEXTROSE 5%-WATER - 50 ML IVPB ONE ×2 (01:07→10:06)
[2021-02-19] MEDS ORDERED: PIPERACILLIN/TAZOBACTAM 3.375 GM VIAL IVPB ONE ×2 (01:07→10:06)
[2021-02-19] MEDS: PIPERACILLIN/TAZOB 3.375 GM 3.375 GM in DEXTROSE 5%-WATER - 50 ML IVPB SCH ×2 (01:21→10:09)
[2021-02-19] MEDS: INSULIN SLIDING SCALE (NOVOLOG) 1 VIAL SQ SCH ×4 (06:13→21:25)
[2021-02-19 07:21] LABS: BASO % 0.9 % (0-2.0); EOS % 2.8 % (0-4.5); HEMATOCRIT 28.8 % (35.4-49); HEMOGLOBIN 10.1 GM/dL (11.7-16.9); LYMPH % 11.4 % (8-40); MCH 30.3 pg (25.7-33.7); MCHC 34.9 g/dl (32.0-35.9); MEAN CELL VOLUME 86.7 fl (80-96); MEAN PLT VOLUME 8.9 fl (7.5-11.1); MONO % 10.3 % (3.8-10.2); NEUT % 74.6 % (42.8-82.8); PLATELET COUNT 149 K/MM3 (134-434); RBC 3.33 M/mm3 (4.00-5.60); RDW 14.2 % (11.9-15.9); WHITE BLOOD COUNT 5.8 K/mm3 (4.0-10.0)
[2021-02-19] MEDS: INSULIN (LEVEMIR) 100 UNITS/ML UNITS SQ SCH (07:29)
[2021-02-19] MEDS: ALBUTEROL SO4 2.5/IPRATROPIUM 0.5 INH SOL 3 ML VIAL.NEB. NEB SCH ×4 (07:40→20:25)
[2021-02-19 07:43] LABS: BLOOD UREA NITROGEN 19.7 mg/dL (7-18)
[2021-02-19 07:45] LABS: CALCIUM 7.6 mg/dL (8.5-10.1)
[2021-02-19 07:49] LABS: CREATININE 1.2 mg/dL (0.55-1.3)
[2021-02-19] MEDS: TAMSULOSIN HCL 0.4 MG CAP PO SCH (10:08)
[2021-02-19] MEDS: LISINOPRIL 5 MG TABLET PO SCH (10:08)
[2021-02-19] MEDS: APIXABAN 5 MG TABLET PO SCH ×2 (10:08→21:25)
[2021-02-19] MEDS: PANTOPRAZOLE SODIUM 40 MG VIAL IVPUSH SCH (10:09)
[2021-02-19] MEDS ORDERED: POTASSIUM CHLORIDE TABS 20 MEQ TABLET.ER (FP) PO ONE (11:30)
[2021-02-19] MEDS: THIAMINE HCL 200 MG/2 ML VIAL IVPB SCH ×2 (13:17→21:26)
[2021-02-19] MEDS ORDERED: ATORVASTATIN CA 20 MG TABLET (FP) PO SCH (22:00)
[2021-02-20] MEDS: INSULIN (LEVEMIR) 100 UNITS/ML UNITS SQ SCH (06:25)
[2021-02-20] MEDS: THIAMINE HCL 200 MG/2 ML VIAL IVPB SCH (06:25)
[2021-02-20] MEDS: INSULIN SLIDING SCALE (NOVOLOG) 1 VIAL SQ SCH ×3 (06:26→17:11)
[2021-02-20] MEDS ORDERED: TAMSULOSIN HCL 0.4 MG CAP PO SCH (07:47)
[2021-02-20] MEDS: ALBUTEROL SO4 2.5/IPRATROPIUM 0.5 INH SOL 3 ML VIAL.NEB. NEB SCH ×4 (09:06→20:43)
[2021-02-20] MEDS: APIXABAN 5 MG TABLET PO SCH (09:07)
[2021-02-20] MEDS: PANTOPRAZOLE SODIUM 40 MG VIAL IVPUSH SCH (09:07)
[2021-02-20] MEDS: LISINOPRIL 5 MG TABLET PO SCH (09:07)
[2021-02-20] MEDS ORDERED: POTASSIUM CHLORIDE TABS 20 MEQ TABLET.ER (FP) PO SCH (11:00)
[2021-02-20 11:36] LABS: CALCIUM 7.6 mg/dL (8.5-10.1)
[2021-02-20 11:37] LABS: ALBUMIN 2.2 g/dl (3.4-5.0); BLOOD UREA NITROGEN 15.4 mg/dL (7-18)
[2021-02-20 11:41] LABS: BILIRUBIN,TOTAL 0.5 mg/dL (0.2-1); TOT PROT 5.3 g/dl (6.4-8.2)
[2021-02-20 15:39] VITALS: TEMP 98.3
[2021-02-20 18:31] VITALS: BP 146/77; PULSE 81
== END 2021-02-20 20:40 | DRG 335 ==
LOC: JER 15:15 → JERBED 20:14 → J5S 02-05 04:22 → JICU 02-10 19:43 → J4S 02-16 15:17
PROVIDERS: ADMIT Internal Medicine; ATTEND Family Medicine
PROC: 0D9670Z Drainage of Stomach with Drainage Device, Via Natural or Artificial Opening (ICD-10-PCS; 2021-02-04)
PROC: 0DN80ZZ Release Small Intestine, Open Approach (ICD-10-PCS; principal; 2021-02-10 13:30)
PROC: 0DQV0ZZ Repair Mesentery, Open Approach (ICD-10-PCS; 2021-02-10 13:30)
DX: K56.50 Intestinal adhesions [bands], unspecified as to partial versus complete obstruction (principal); J69.0 Pneumonitis due to inhalation of food and vomit; E87.2 Acidosis; I48.19 Other persistent atrial fibrillation; E78.5 Hyperlipidemia, unspecified; Z79.84 Long term (current) use of oral hypoglycemic drugs; E11.9 Type 2 diabetes mellitus without complications; F03.90 Unspecified dementia, unspecified severity, without behavioral disturbance, psychotic disturbance, mood disturbance, and anxiety; D64.9 Anemia, unspecified; I12.9 Hypertensive chronic kidney disease with stage 1 through stage 4 chronic kidney disease, or unspecified chronic kidney disease; E11.22 Type 2 diabetes mellitus with diabetic chronic kidney disease; N18.2 Chronic kidney disease, stage 2 (mild); Z79.01 Long term (current) use of anticoagulants; I65.21 Occlusion and stenosis of right carotid artery; R33.9 Retention of urine, unspecified; N40.1 Benign prostatic hyperplasia with lower urinary tract symptoms; R33.8 Other retention of urine; E87.6 Hypokalemia; E83.42 Hypomagnesemia; K46.9 Unspecified abdominal hernia without obstruction or gangrene; I25.10 Atherosclerotic heart disease of native coronary artery without angina pectoris; I16.0 Hypertensive urgency; I44.1 Atrioventricular block, second degree; E66.3 Overweight; Z86.73 Personal history of transient ischemic attack (TIA), and cerebral infarction without residual deficits; R49.0 Dysphonia; Z68.27 Body mass index [BMI] 27.0-27.9, adult
CPT/HCPCS: 36415; 36430; 36600; 70450-TC; 71045-TC-FY; 71046-TC-FY; 72192-TC; 74018-TC-FY; 74019-TC-FY; 74175-TC; 74176-TC; 74230-TC-FY; 80048; 80053; 81003; 82040; 82550; 82607; 82803; 82962; 83036; 83605; 83690; 83735; 84100; 84439; 84443; 84484; 85025; 85027; 85610; 85730; 86780; 86850; 86900; 86901; 86922; 87040; 87070; 87086; 87205; 87899; 92611-GN; 93005; 93010; 93306-TC; 93880-TC; 94002; 94010; 94640; 94760; 97116-GP; 97162-GP; 99285-25; C9803; J0131; J1100; J1644; P9017; Q9967; U0003; U0005